=== PATIENT | male | born 1955 | race Caucasian/White ===

== ENCOUNTER → 2016-11-12 | Outpatient (CLI) | payer MEDICARE | END | disposition home or self-care (01) | LOC: GMAM 12:56 | PROVIDERS: ATTEND Family Medicine | DX: R10.84 Generalized abdominal pain (principal) ==

== ENCOUNTER → 2016-11-15 | Outpatient (CLI) | payer MEDICARE | END | disposition home or self-care (01) | LOC: GMAM 15:03 | PROVIDERS: ATTEND Family Medicine | DX: R19.7 Diarrhea, unspecified (principal) ==

== ENCOUNTER → 2016-11-19 | Outpatient (CLI) | payer MEDICARE | END | disposition home or self-care (01) | LOC: LAB.O 13:15 | PROVIDERS: ATTEND Family Medicine | DX: R19.7 Diarrhea, unspecified (principal) ==

== ENCOUNTER → 2016-11-29 | Outpatient (CLI) | payer MEDICARE | END | disposition home or self-care (01) | LOC: GMAM 10:38 | PROVIDERS: ATTEND Family Medicine | DX: R10.84 Generalized abdominal pain (principal) ==

== ENCOUNTER → 2016-12-01 | Outpatient (CLI) | payer MEDICARE ==
--- NOTE | 2016-12-01 08:31 | CT ---
EXAM DESCRIPTION: Abdomen/Pelvis w/wo Contrast CLINICAL HISTORY: UNSPECIFIED ABDOMINAL PAIN COMPARISON: Chest CT performed in June, TECHNIQUE: CT of the abdomen and Pelvis was performed with and without IV contrast. FINDINGS: There is no concerning lung base abnormality. 2 tiny nodular densities in the right lung base are stable from an older chest CT performed in June,. There is no pneumoperitoneum, ascites or adenopathy. No abdominal aortic aneurysm. No hiatal hernia or gastric wall thickening. No calcified gallstone. The liver, spleen, pancreas, adrenals and kidneys are unremarkable. No dilated small bowel loops. No bladder wall thickening. The prostate is at the upper limits of normal size, measuring just under 5 cm transverse diameter. There is minimal colonic diverticulosis without diverticulitis. Postoperative changes in the right lower quadrant may be related to prior appendectomy. No bladder wall thickening. There are degenerative changes in the lumbar spine at several levels. IMPRESSION: Minimal colonic diverticulosis, but no diverticulitis or other abnormality in the abdomen or pelvis to explain unspecified abdominal pain. Electronically signed by: Charlie Brownlee MD 12/01/2016 8:30 AM [employer]
== END | disposition home or self-care (01) ==
LOC: CT 07:49
PROVIDERS: ATTEND Family Medicine
DX: R10.84 Generalized abdominal pain (principal); N20.0 Calculus of kidney

== ENCOUNTER 2017-01-12 02:46 | Day surgery (SDC) | payer MEDICARE ==
[2017-01-12] MEDS ORDERED: LACTATED RINGERS 1,000 ML ONE (05:59)
[2017-01-12] MEDS ORDERED: fentaNYL CITRATE INJ 50 MCG/ML AMP ONE (09:25)
[2017-01-12] MEDS ORDERED: MIDAZOLAM INJ 5 MG/5 ML VIAL ONE (09:25)
[2017-01-12 09:33] VITALS: O2SAT 98
[2017-01-12] MEDS ORDERED: PROPOFOL 200 MG/20 ML VIAL IV ONE (10:00)
[2017-01-12] MEDS ORDERED: LIDOCAINE 1% 10 ML VIAL INJ ONE (10:00)
--- NOTE | 2017-01-12 10:44 | OP ---
DATE OF PROCEDURE: 01/12/17 PREOPERATIVE DIAGNOSIS: 1. Nausea. 2. Dysphagia. 3. Globus sensation. 4. Change in bowel habits. 5. Diarrhea. POSTOPERATIVE DIAGNOSIS: 1. Gastric ulcer. 2. Gastritis. 3. Colon lipomas. 4. Diverticulosis. PROCEDURE: 1. Esophagogastroduodenoscopy plus biopsy. 2. Colonoscopy plus biopsy. SURGEON: Levon Marshall MD. COMPLICATIONS: None apparent. BLOOD LOSS: None. MEDICATIONS: Monitored anesthesia care. DESCRIPTION OF PROCEDURE: Informed consent was obtained prior to sedation. The preprocedure cardiopulmonary assessment was satisfactory. The patient was placed in the left lateral decubitus position and was sedated. The tip of the Olympus esophagogastroduodenoscope was inserted in the oropharynx and carefully advanced through the cricopharyngeus into the esophageal lumen. The esophagus was examined and was unremarkable. There is no evidence of esophagitis or Hernandez's esophagus. The squamocolumnar junction was unremarkable. The stomach was examined with direct and retroflexed views. The antrum, body, fundus, cardia and incisura were closely examined. In the gastric cardia, there was some inflammation and a small, shallow gastric ulcer. This was biopsied. It does not appear neoplastic. The rest of the stomach was examined with direct and retroflexed views. The antrum, body, fundus, and incisura were examined and are pretty unremarkable. Biopsy for H. pylori was obtained in the antrum. The duodenum was examined to the second portion and does not have any changes suggestive of sprue. The scope was then removed from the patient. The patient was rotated 180 degrees. A digital rectal exam was unremarkable. The tip of the Olympus colonoscope was inserted in the rectum and guided over to the cecum. The cecum was identified by locating the ileocecal valve and appendiceal orifice. Prep was good. The mucosa of the cecum, ascending colon, hepatic flexure, transverse colon, splenic flexure, descending colon and sigmoid colon was closely examined. Direct and retroflexed views of the rectum were also obtained. The patient had a few sigmoid diverticula. The patient also has about 3 small lipomas. Otherwise, the colonoscopy was unremarkable without any obvious evidence to explain the patient's diarrhea. I did take biopsies throughout the colon looking for microscopic colitis. The procedure was then terminated. ENDOSCOPIC FINDINGS: 1. Gastric ulcer. 2. Gastritis of the cardia. 3. A few lipomas in the colon. 4. A few sigmoid diverticula. 5. Otherwise unremarkable EGD and colonoscopy. RECOMMENDATIONS: 1. I recommended daily Nexium. He can use Nexium OTC. 2. Resume his Plavix today along with his other medications. 3. Followup with me in the [facility] in January. #[id number] cc: Isauro Blankenship MD [facility]
[2017-01-12 11:02] VITALS: BP 137/82; TEMP 97.1
== END 2017-01-12 10:45 | disposition home or self-care (01) ==
LOC: AMB 02:46
PROVIDERS: ATTEND Internal Medicine Gastroenterology
DX: R19.7 Diarrhea, unspecified (principal); D12.6 Benign neoplasm of colon, unspecified; K57.30 Diverticulosis of large intestine without perforation or abscess without bleeding; K29.50 Unspecified chronic gastritis without bleeding; K29.00 Acute gastritis without bleeding; B96.81 Helicobacter pylori [H. pylori] as the cause of diseases classified elsewhere; K21.9 Gastro-esophageal reflux disease without esophagitis; F17.210 Nicotine dependence, cigarettes, uncomplicated; Z88.5 Allergy status to narcotic agent; Z95.5 Presence of coronary angioplasty implant and graft; Z79.82 Long term (current) use of aspirin; Z79.899 Other long term (current) drug therapy
CPT/HCPCS: 00810; 43239; 45380; 87077; J2250; J3010; J3490; J7120

== ENCOUNTER → 2017-02-07 | Outpatient (CLI) | payer MEDICARE | END | disposition home or self-care (01) | LOC: GMAM 16:56 | PROVIDERS: ATTEND Family Medicine | DX: Z12.5 Encounter for screening for malignant neoplasm of prostate (principal); D49.512 Neoplasm of unspecified behavior of left kidney; N39.0 Urinary tract infection, site not specified; I10 Essential (primary) hypertension; Z79.899 Other long term (current) drug therapy; Z79.82 Long term (current) use of aspirin; Z13.89 Encounter for screening for other disorder | CPT/HCPCS: 85610; 85730; 87070; 87086; G0103 ==

== ENCOUNTER → 2017-03-21 | Outpatient (CLI) | payer MEDICARE | END | disposition home or self-care (01) | LOC: GMA 17:22 | PROVIDERS: ATTEND Nurse Practitioner Acute Care | DX: R30.0 Dysuria (principal) ==

== ENCOUNTER → 2017-04-18 | Outpatient (CLI) | payer MEDICARE ==
--- NOTE | 2017-04-19 12:52 | MRI ---
Study: MRI of the Lumbar Spine. Indication: LUMBAR PAIN Technique: Multiplanar, multi sequence MRI of the lumbar spine was obtained with and without intravenous contrast. Comparison: MRI of thoracic, same day. Findings: The designated L5-S1 disc space level is visualized on axial T2 image 4. Vertebral body height maintained. Dextrocurvature lower lumbar spine. Pedicles congenitally short throughout. . Conus medullaris unremarkable. L1-L2: Mild disc space height loss and disc desiccation. 3 mm right-center disc bulge. Moderate right and mild left facet arthrosis. No stenosis. L2-L3: Mild disc space height loss and disc desiccation. 3 mm disc bulge and mild to moderate bilateral facet arthrosis. Minimal bilateral neural foraminal narrowing. L3-L4: Moderate left lateral disc space height loss and disc desiccation. Trace retrolisthesis. 4 mm left central disc bulge with mild to moderate left and mild right neural foraminal narrowing. Indentation ventral thecal sac with moderate left and mild right lateral recess narrowing. Mild spinal canal narrowing, mid sagittal thecal sac diameter 9 mm. L4-L5: Moderate to severe right lateral disc space height loss and disc desiccation noted with a 4 mm right eccentric disc osteophyte complex producing moderate right and [id number] left neural foraminal narrowing. Moderate left and mild right lateral recess narrowing. Mild spinal canal narrowing, mid sagittal thecal sac diameter 9 mm. Moderate bilateral facet arthrosis. L5-S1: Severe disc space height loss and disc desiccation posteriorly. Patchy Modic type II endplate changes. 5 mm disc osteophyte complex with posterior annular fissuring. Moderate to severe bilateral neural foraminal narrowing. Indentation ventral thecal sac with mild spinal canal narrowing, mid sagittal thecal sac diameter 9 mm. Moderate right and mild left lateral recess narrowing. No pathologic enhancement or abnormal enhancing relation tissue. 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 Findings are most pronounced at L5-S1 as detailed above. Electronically signed by: Marshall Beckham MD 04/19/2017 12:50 PM CDT
--- NOTE | 2017-04-19 12:58 | MRI ---
Study: MRI of the Thoracic Spine. Indication: Thoracic pain. Technique: Multiplanar, multi sequence MRI of the thoracic spine was obtained without intravenous contrast. Comparison: MRI lumbar, same day Findings: Chronic appearing Schmorl's node/superior plate deformities at T3 noted with 30% anterior/central height loss. No acute thoracic vertebral fracture identified. Accentuation of upper thoracic kyphosis noted. No marrow infiltrating lesion. Spinal cord normal in caliber and signal. Mild to moderate loss of disc space height height and hydration noted throughout the thoracic spine. T7-T8: 2.5 mm left eccentric disc bulge indenting the ventral thecal sac without stenosis. T8-T9: 2.5 mm left central disc bulge indenting the ventral thecal sac without stenosis. T9-T10: 3 mm disc bulge indenting the thecal sac with mild spinal canal narrowing. Facet arthrosis at this level noted as well with mild bilateral neural foraminal narrowing. T10-T11: 2.5 mm right eccentric disc bulge without spinal canal narrowing. Bilateral facet arthrosis noted with mild bilateral neural foraminal narrowing. No stenosis at the remaining thoracic disc space levels. Impression: Aork-fl-[id number] disc disease of the mid to lower thoracic disc space levels, most pronounced at T9-T10 as above. Electronically signed by: Marshall Beckham MD 04/19/2017 12:57 PM CDT
== END ==
LOC: MRI 11:04
PROVIDERS: ATTEND Neurological Surgery
DX: M54.5 Low back pain (principal); M54.6 Pain in thoracic spine

== ENCOUNTER → 2017-05-10 | Outpatient (CLI) | payer MEDICARE ==
--- NOTE | 2017-05-10 12:54 | CT ---
EXAM DESCRIPTION: CT chest with contrast CLINICAL HISTORY: Pulmonary nodules. COPD/emphysema COMPARISON: CT 12/01/2016 TECHNIQUE: Contrast-enhanced spiral CT with coronal and sagittal reformatted images. This exam was performed according to our departmental dose-optimization program, which includes automated exposure control, adjustment of the mA and/or kV according to patient size and/or use of iterative reconstruction technique. FINDINGS: The 2 tiny nodular densities in the right lower lung zone are again identified, stable 1 adjacent to the apex hemidiaphragm and the other in the lateral segment right middle lobe. These are benign nodules consistent with granulomas stable back to 2012 Emphysema thinning the upper lobes. 2 mm nodule posterior right upper lobe series 2 image 14. Faint groundglass patchy opacities in the bilateral lungs could be interstitial fibrosis versus acute infiltrate/pneumonitis. Unlikely to represent edema Visualized thyroid gland is normal. Small probably reactive hilar or mediastinal lymph nodes. Heart size normal. Coronary artery calcifications. Atherosclerotic aorta. Images through the upper abdomen show no mass or adenopathy Multilevel degenerative changes in the spine. No acute bony abnormality. No lytic or blastic bony lesion. Previous cervical spine fusion IMPRESSION: Emphysema. No suspicion of malignancy Faint bilateral multifocal patchy groundglass opacities. See above discussion Electronically signed by: Jon Johnson MD 05/10/2017 12:53 PM CDT
== END | disposition home or self-care (01) ==
LOC: CT 09:50
PROVIDERS: ATTEND Family Medicine
DX: R91.1 Solitary pulmonary nodule (principal); J44.1 Chronic obstructive pulmonary disease with (acute) exacerbation; I25.10 Atherosclerotic heart disease of native coronary artery without angina pectoris

== ENCOUNTER → 2017-10-07 | Outpatient (CLI) | payer MEDICARE | END | disposition home or self-care (01) | LOC: GMAM 14:21 | PROVIDERS: ATTEND Family Medicine | DX: R53.83 Other fatigue (principal); R53.81 Other malaise; E55.9 Vitamin D deficiency, unspecified ==

== ENCOUNTER → 2017-10-19 | Outpatient (CLI) | payer MEDICARE | LOC: GMAJS 10:51 | PROVIDERS: ATTEND Physician Assistant | DX: R30.0 Dysuria (principal) ==

== ENCOUNTER → 2017-10-27 | Outpatient (CLI) | payer MEDICARE | LOC: GMAM 14:41 | PROVIDERS: ATTEND Family Medicine | DX: R10.84 Generalized abdominal pain (principal) ==

== ENCOUNTER → 2018-03-07 | Outpatient (CLI) | payer MEDICARE | LOC: GMAM 14:40 | PROVIDERS: ATTEND Family Medicine | DX: I10 Essential (primary) hypertension (principal); R30.0 Dysuria; R53.83 Other fatigue; N40.0 Benign prostatic hyperplasia without lower urinary tract symptoms; E55.9 Vitamin D deficiency, unspecified ==

== ENCOUNTER → 2018-06-08 | Outpatient (CLI) | payer MEDICARE ==
--- NOTE | 2018-06-09 09:12 | MRI ---
EXAM DESCRIPTION: Lumbar Spine w/o Contrast : Magnetic Resonance Imaging. CLINICAL HISTORY: LUMBAR RADICULOPATHY COMPARISON: MRI scan lumbar spine 04/18/2017. TECHNIQUE: Multiplanar, multiple standard sequences, non contrast MRI, lumbar spine. FINDINGS: L5-S1: Disc space is visible on T2 weighted axial sequence 501, image 3. Patient also has a rudimentary S1-2 disc. Disc space decreased with disc desiccation. Posterior 5 mm disc bulge with associated spur impressing on the thecal sac and extending inferior to the right encroaching on the subarticular recess and the descending right S1 nerve. Posterior elements are unremarkable. Moderate bilateral foraminal narrowing. L4-5: Disc desiccation and minimal disc space loss. Anterior bulging. Posterior disc osteophyte bulge to the left of midline 5 mm abutting the thecal sac and the left descending L5 nerve with narrowing of the subarticular recess. Left paracentral borderline canal stenosis. Mild narrowing left foramen moderate narrowing right foramen. L3-4: Disc desiccation. Anterior endplate spurs. Right side Modic type I endplate reactive changes, disc spur complex encroaching on the left foramen with mild narrowing. Large right paracentral disc protrusion and inferior extrusion 10 mm with right subarticular recess stenosis and impingement of the descending right L4 nerve. New since the prior study. Right paracentral mild canal stenosis. Mild narrowing of the right foramen. L2-3: Minimal disc space loss and minimal disc desiccation. Tiny posterior bulge. Minimal flavum ligament hypertrophy. Minimal facet arthrosis. Mild canal narrowing. Mild bilateral foraminal narrowing. L1-2: Disc desiccation posterior disc space loss. Tiny posterior bulge. Flavum ligament hypertrophy and minimal facet arthrosis. Mild canal narrowing. Bilateral foramina are patent. T12-L1: Disc space preserved with anterior bulging. Tiny posterior bulge. Hypertrophy of the bilateral facet joints. Mild canal narrowing. Conus terminates just above the disc space. L1-L4 dextroscoliosis. Paravertebral soft tissues minimal paraspinal muscle atrophy.. Otherwise normal marrow signal in the remaining vertebral bodies and the posterior elements. Vertebral bodies are not compressed at any level. IMPRESSION: 1. Large right paracentral L3-4 disc herniation with inferior extrusion impinging the thecal sac and the descending right L4 nerve with right subarticular recess stenosis. Mild spondylosis on the left with disc spur complex narrowing the left foramen. 2. Posterior paracentral left L4-5 disc osteophyte bulge abutting the thecal sac and the descending left L5 nerve in the left subarticular recess. No change since the prior study. 3. Posterior L5-S1 disc bulge with osteophyte seen into the right and encroaching on the right subarticular recess and the descending right S1 nerve. Stable since the prior study. Electronically signed by: Galo Ozuna MD 06/09/2018 9:10 AM CDT
== END ==
LOC: MRI 10:18
PROVIDERS: ATTEND Family Medicine
DX: M51.16 Intervertebral disc disorders with radiculopathy, lumbar region (principal); M51.17 Intervertebral disc disorders with radiculopathy, lumbosacral region

== ENCOUNTER → 2018-06-14 | Outpatient (CLI) | payer MEDICARE | LOC: GMAM 17:49 | PROVIDERS: ATTEND Family Medicine | DX: D35.2 Benign neoplasm of pituitary gland (principal); E55.9 Vitamin D deficiency, unspecified; Z12.5 Encounter for screening for malignant neoplasm of prostate | CPT/HCPCS: 82306; 84439; 84443; G0103 ==

== ENCOUNTER → 2018-10-17 | Outpatient (CLI) | payer MEDICARE | LOC: GMAJS 10:31 | PROVIDERS: ATTEND Physician Assistant | DX: R10.84 Generalized abdominal pain (principal) ==

== ENCOUNTER → 2018-10-30 | Outpatient (CLI) | payer MEDICARE | LOC: GMAM 16:47 | PROVIDERS: ATTEND Family Medicine | DX: R06.02 Shortness of breath (principal); R10.84 Generalized abdominal pain; Z12.5 Encounter for screening for malignant neoplasm of prostate | CPT/HCPCS: 83880; G0103 ==

== ENCOUNTER → 2018-10-31 | Outpatient (CLI) | payer MEDICARE ==
--- NOTE | 2018-10-31 15:15 | MRI ---
EXAM DESCRIPTION: Brain w/o Contrast: MRI. CLINICAL HISTORY: DIZZINESS COMPARISON: MRI scan of the brain without evidence of IV contrast 09/13/2016. CT scan of the abdomen and pelvis today. TECHNIQUE: Multiplanar, high-field MRI unit, multiple diffusion sequences, multiple conventional sequences without contrast. FINDINGS: Small bilateral indistinct foci of hyperintense FLAIR and T2-weighted signal in the periventricular white matter. Focal meeks-white matter junction lesion in the left frontal lobe at the level of the upper ventricles on axial flair series 601, image 17. The lesion was less distinct on the prior study. . No hemorrhage, no cerebral edema, no mass-effect. No diffusion restriction. Normal signal in the bilateral basal ganglia. Small focal hyperintense FLAIR and T2 signal in the brainstem. Similar appearance on the prior study. Normal signal in the bilateral Cerebellar hemispheres. No hemorrhage, no cerebral edema, no mass-effect. No diffusion restriction in the brainstem or posterior fossa. Concordance of the diffusion and non-diffusion sequences with no diffusion restriction. Cortical sulci, ventricles, and other CSF spaces, and the subdural spaces are normally configured for the patient's age.. No effacement or displacement. No midline shift. No extra-axial hemorrhage. Normal flow signal void in the major vessels of the [place], and the venous sinuses. IACs are symmetric bilaterally. Minimal fluid density in the inferior right mastoid air cells. No mass effect in the bilateral cerebellopontine angles. Pituitary gland occupies most of the sella. Base of the cerebellar tonsils is above the foramen magnum. No significant abnormalities in the. The bony calvarium is intact. IMPRESSION: 1. White matter changes in the bilateral periventricular centrum semiovale which are stable since the prior study in August 2016. Focal lesion in the left frontal subcortical white matter is more distinct compared to the prior study which may be due to technique versus actual change in size of the lesion. No hemorrhage, no edema, no diffusion restriction. 2. White matter changes in the brainstem are stable with no hemorrhage, edema, or diffusion restriction. 3. 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 Electronically signed by: Galo Ozuna MD 10/31/2018 3:12 PM [facility]
--- NOTE | 2018-10-31 15:52 | CT ---
EXAM DESCRIPTION: Abdomen/Pelvis w/wo Contrast: Computed Tomography. CLINICAL HISTORY: GENERALIZED ABDOMINAL PAIN. Lower abdominal tenderness. COMPARISON: CT scan abdomen and pelvis 12/01/2016. Chest CT scan 05/10/2017. TECHNIQUE: Spiral-axial scans at 5.0 mm intervals through the abdomen and pelvis before and after standard dose nonionic IV contrast. Coronal and sagittal 2.0 mm reconstructions. 5 mm Delayed helical-axial scans, liver through the pubic symphysis. No adverse reactions. Total Exam DLP 1974.01 mGy - cm. This exam was performed according to our departmental CT dose-optimization program which includes automated exposure control, adjustment of the mA and/or kV according to patient size and/or use of iterative reconstruction technique; to reduce radiation dose to as low as reasonably achievable (ALARA). FINDINGS: Lung bases and pleura: Patchy bibasilar Mosaic density in the included lungs. Coronary artery calcification. Liver, Stomach, Spleen, Adrenal Glands: Unremarkable. Pancreas, Gallbladder, Ducts: Gallbladder visualized. Stone or sludge inferior dependent segment. Duct and pancreas unremarkable. Slight distention of the duodenum by gas. Kidneys and Ureters: Small arterial atherosclerotic calcification on the right. No bilateral radiodense stones, hydronephrosis, or hydroureter. Mesentery: Negative. Aorta: Moderate atherosclerotic calcification and intimal wall thickening with narrowing of the distal lumen. Small Bowel: Negative. Terminal Ileum/Cecum: Unremarkable. Surgical sutures and clips inferior cecum with appendix not seen. No fatty stranding. Colon: Question of minimal mucosal edema of the proximal sigmoid colon. No obstruction. No fatty stranding. Remainder of the colon is unremarkable. Pelvic Organs: Prostate gland impresses on the base of the urinary bladder. Central calcification. Dimensions are 4.9 mL x 3.8 cm. Bladder wall thickening. No free fluid. Spine and Bony Pelvis: Disc space loss and gas formation in the disc spaces L3-4, L4-5, L5-S1. Posterior broad-based disc osteophyte bulge L5-S1 and significant canal and foraminal narrowing. Lower lumbar dextroscoliosis. Hypertrophic changes in the bilateral acetabular facets laterally. Abdominal Wall/Back Soft Tissues: Fatty right inguinal hernia not containing bowel. Right hydrocele. IMPRESSION: 1. Stone or sludge in the inferior gallbladder. Common bile duct and pancreas negative. No fatty stranding. Consider follow-up ultrasound right upper quadrant abdomen. 2. Prostate gland impressing on the base of the urinary bladder. Bladder wall thickening may be due to partial bladder outlet obstruction. 3. Fatty right inguinal hernia not containing bowel. 4. Thickening of the proximal sigmoid bowel wall with possible edema and lack of haustral markings. No fatty stranding. Could represent a nonspecific or recurrent colitis. Similar appearance on the prior abdominal pelvic scan 5. Chronic airspace density in the bilateral lower lobes consistent with the appearance of the lungs on chest CT scan in April 2017. Electronically signed by: Galo Ozuna MD 10/31/2018 3:49 PM [facility]
== END ==
LOC: CT 08:21
PROVIDERS: ATTEND Family Medicine
DX: R42 Dizziness and giddiness (principal); R10.84 Generalized abdominal pain; K40.90 Unilateral inguinal hernia, without obstruction or gangrene, not specified as recurrent; H70.11 Chronic mastoiditis, right ear

== ENCOUNTER 2018-11-01 18:46 | Observation (INO) | payer MEDICARE ==
--- NOTE | 2018-11-01 19:09 | ED.PDOC ---
History of Present Illness - General Chief Complaint: GI Problem Stated Complaint: GI symptoms, weakness Time Seen by Provider: 11/01/18 19:08 Information Source: patient Exam Limitations: no limitations - History of Present Illness Initial Comments: Lenin Genao 63 y/o male state that he had been having daily bearable constant dull upper abdominal pain for the last 2 months,stated no energy,feeling bloated,nauseated ,no vomiting ,no weight loss,loss of appetite.Had seen his primary Md CT abd/pelvis-sludge or stone,colitis was also placed on antibiotics for prostatitis-Cipro.He was advised to be admitted to hospital. Abdominal Pain Onset Location: other - upper abdomen Pain Radiation: no radiation Quality: moderate, dull, steady Timing/Duration: other - 60 days Improving Factors: nothing Worsening Factors: nothing Associated Symptoms: other - see hpi Review of Systems - Review of Systems Constitutional: States: see HPI EENTM: States: no symptoms reported Respiratory: States: no symptoms reported Cardiology: States: no symptoms reported Gastrointestinal/Abdominal: States: see HPI Genitourinary: States: see HPI Musculoskeletal: States: no symptoms reported Skin: States: no symptoms reported Neurological: States: no symptoms reported All other Systems: Reviewed and Negative, No Change from Baseline Past Medical History (General) - Patient Medical History Hx Stroke: Yes - TIA Hx of COPD: Yes Hx Cardiac Disorders: Yes - arrhythmia Hx Congestive Heart Failure: No Hx Diabetes: No Hx MRSA: No Surgical History: appendectomy, coronary bypass surgery, other - c-spine surgery - Vaccination History Hx Influenza Vaccination: No Hx Pneumococcal Vaccination: No - Social History Hx Tobacco Use: Yes Hx Alcohol Use: Yes Hx Physical Abuse: No Hx Emotional Abuse: No Family Medical History - Family History Father Living Status: Hx Family Congestive Heart Failure: Yes - parents Hx Family Hypertension: Yes - parents Physical Exam - Physical Exam General Appearance: Alert, Comfortable, No apparent distress Eyes, Ears, Nose, Throat Exam: normal ENT inspection, pharynx normal Neck: non-tender, full range of motion, supple Respiratory: chest non-tender, lungs clear, normal breath sounds, no respiratory distress Cardiovascular/Chest: normal peripheral pulses, regular rate, rhythm, no murmur Peripheral Pulses: No deficit Gastrointestinal/Abdominal: normal bowel sounds, non tender, soft, no organomegaly Extremity: no pedal edema, no calf tenderness Neurologic: alert, oriented x 3 Skin Exam: normal color, warm/dry Progress - Progress Progress: 11/01/18 20:26 Vital Signs - 8 hr 11/01/18 11/01/18 18:50 18:56 Temperature 97.5 F L Pulse Rate [ 83 81 Left Radial] Respiratory 22 20 Rate Blood Pressure 127/89 [Left Arm] O2 Sat by Pulse 94 L Oximetry - Results/Orders Results/Orders: 11/01/18 19:10 IV Care:Saline Lock per Protoc QSHIFT 11/01/18 19:18 LACTIC ACID Stat Laboratory Results - last 24 hr 11/01/18 11/01/18 19:18 19:18 WBC 7.2 RBC 4.91 Hgb 14.9 Hct 44.4 MCV 90.4 MCH 30.3 MCHC 33.6 RDW 14.9 H Plt Count 188 MPV 9.0 Absolute Neuts (auto) 5.20 Absolute Lymphs (auto) 1.20 Absolute Monos (auto) 0.50 Absolute Eos (auto) 0.20 Absolute Basos (auto) 0.10 Neutrophils % 72.0 Lymphocytes % 17.0 L Monocytes % 6.5 Eosinophils % 3.2 Basophils % 1.3 PT 9.4 INR 0.94 PTT (SP) 22.7 Sodium 129 L Potassium 4.1 Chloride 95 L Carbon Dioxide 25 Anion Gap 13.1 BUN 15 Creatinine 0.78 BUN/Creatinine Ratio 19.2 Random Glucose 144 H Serum Osmolality 262.3 L Calcium 9.0 Magnesium 1.8 Total Bilirubin 0.5 Direct Bilirubin < 0.1 Indirect Bilirubin 0.4 AST 19 ALT 21 Alkaline Phosphatase 63 Creatine Kinase 45 CK-MB (CK-2) 2.0 CK-MB (CK-2) % Not Reportable Troponin I < 0.02 Serum Total Protein 7.3 Albumin 4.4 Lipase 31 Urine Color Yellow Urine Appearance Clear Urine pH 6.5 Ur Specific [place] 1.025 Urine Protein Negative Urine Glucose (UA) Negative Urine Ketones Negative Urine Blood Negative Urine Nitrite Negative Urine Bilirubin Negative Urine Urobilinogen 0.2 Ur Leukocyte Esterase Negative Urine RBC 0 Urine WBC 0-1 Ur Epithelial Cells 0 Urine Bacteria 0 - EKG/XRAY/CT XRAY: chest - no acute abnormalities CT Ordered: Yes - outpatient Departure - Departure Clinical Impression: Abdominal pain Qualifiers: Abdominal location: upper abdomen, unspecified Qualified Code(s): R10.10 - Upper abdominal pain, unspecified Time of Disposition: 20:57 Disposition: Admit Patient Condition: Fair Departure Forms: Patient Portal Self Enrollment Referrals: Jon Blankenship MD [Primary Care Provider] - 1-2 Weeks Home Medications: Ambulatory Orders Amlodipine Besylate 5 mg PO DAILY 01/10/17 Ascorbic Acid [Vitamin C] 1,000 mg PO DAILY 01/10/17 Aspirin [Aspirin Adult Low Dose] 81 mg PO DAILY 01/10/17 Benazepril HCl [Lotensin] 10 mg PO DAILY 01/10/17 Carvedilol [Coreg] 6.25 mg PO BID 01/10/17 Clopidogrel Bisulfate [Plavix] 75 mg PO QD 01/10/17 Coenzyme Q10 (Ubidecarenone) [Co Q-10] 200 mg PO DAILY 01/10/17 Meloxicam [Mobic] 7.5 mg PO BID 01/10/17 Nitroglycerin [Nitrostat] 0.4 mg SL PRN PRN 01/10/17 Probiotic Product [Probiotic] 1 tab PO DAILY 01/10/17 Tamsulosin [Flomax] 0.4 mg PO QD 01/10/17 Trazodone HCl 75 mg PO DAILY 01/10/17 Vortioxetine HBr [Brintellix] 20 mg PO DAILY 01/10/17 Decision To Admit - Decistion To Admit Decision to Admit Reason: Admit from ER Decision to Admit Date: 11/01/18 - D/W Yves Pozo-ANP/Hospitalist Decision to Admit Time: 20:58
[2018-11-01] MEDS ORDERED: LACTATED RINGERS 1,000 ML IVS ONE (19:10)
--- NOTE | 2018-11-01 19:39 | RAD ---
EXAM DESCRIPTION: Chest,1 View CLINICAL HISTORY: 63 years Male pain COMPARISON: 05/10/2017 CT FINDINGS: The cardiomediastinal silhouette appears unremarkable. No consolidating infiltrates or pleural effusions. No pneumothorax. Median sternotomy wires are present. IMPRESSION: No acute abnormality is identified. Electronically signed by: Lucrecia Muller MD 11/01/2018 7:37 PM [facility] [employer]
--- NOTE | 2018-11-01 21:23 | HP ---
SUPERVISING PHYSICIAN: Jon Blankenship MD CHIEF COMPLAINT: Right upper quadrant pain, nausea. HISTORY OF PRESENT ILLNESS: Mr. Genao is a 63-year-old, male patient who is very histrionic. He notes his symptoms started back in June when he had a strep infection and he just started not feeling well. He saw his blood tester who found no acute findings to explain his symptoms. His discomfort and not feeling well progressed and he presented to the walk-in clinic last week and was seen by LAVERNE Zhao, and diagnosed with kidney stones. At that time, he was given a shot of Toradol. This past Tuesday, he saw Dr. Blankenship because he was feeling worse. He noted some tenderness in the right upper quadrant and midabdomen associated with some nausea and dizziness. Dr. Blankenship did a CT of the abdomen with contrast with significant findings including an enlarged prostate that was pressing on the base of the urinary bladder with bladder wall thickening which could be due to partial bladder outlet obstruction. There was also note of stone or sludge in the inferior gallbladder with common bile duct and pancreas being negative with no fat stranding. The patient then was called today after the findings of the CT were reported and Dr. Blankenship requested the patient go to the Emergency Room for further evaluation for concerns for possible cholecystitis. He was also started on ciprofloxacin this week for the prostatitis that was diagnosed on CT scan. Prior to coming to the Emergency Room today, Dr. Blankenship had completed [employer] testing on the patient and there were no positive results found. His workup in the Emergency Room included laboratory studies that showed a normal white count of 7,200. Chemistry showed just a mildly low sodium of 129. Otherwise, electrolytes were within normal limits as well as his renal function. Liver functions were within normal limits as well as lipase. Lactic acid was normal at 1.8. Urinalysis was without any sign of infection. A chest x-ray was also done and per radiologic interpretation showed no acute abnormalities. Review of the past week showed also that he had brain MRI with no significant acute findings. 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 In the Emergency Room, his vital signs showed he was afebrile, blood pressure 137/76, saturation 96% on room air. On physical examination, the patient was noted to be tender across the midabdomen, no guarding or rebound, as well as some tenderness noted to the right upper quadrant. Given the past symptoms associated with the pain and current findings on CT, Dr. Blankenship requested the patient be placed in Observation overnight and given some IV fluids and made NPO for ultrasound in the morning with a consultation with Dr. Tena. The patient was placed in Observation in stable condition. PAST MEDICAL HISTORY: 1. Cardiovascular disease with multiple cardiac stents and coronary artery bypass graft times 2. PAST SURGICAL HISTORY: 1. Coronary artery bypass graft times 2. 2. Appendectomy in 2017. 3. Coronary artery stenting times 13 stents. 4. Hemorrhoidectomy. 5. Vasectomy. 6. Neck fusion secondary to fractured cervical spine after a fall. CURRENT MEDICATIONS: 1. Flomax 0.4 mg daily. 2. Tadalafil 5 mg daily. 3. Probiotic 1 tablet daily. 4. Nitroglycerin 0.4 mg sublingual p.r.n. 5. Mobic 7.5 mg b.i.d. 6. Desvenlafaxine extended release 50 mg daily. 6. Cyclobenzaprine 10 mg daily. 7. Coenzyme Q10 200 mg daily. 8. Plavix 75 mg daily. 9. Cipro 500 mg b.i.d. 10. Vitamin D 3000 units daily. 11. Coreg 25 mg b.i.d. 12. Aspirin 81 mg. ALLERGIES: MORPHINE, RESULTING IN EXTENSIVE ITCHING. FAMILY HISTORY: Mother is still alive at 85 and has advanced heart disease. Father at age 76 of heart disease with congestive heart failure and kidney problems. He had one sister at age 30 with diabetes complications and heart disease. He has one brother at age 64 due to heart disease and throat cancer. He has one sister that is 63 and currently alive with cardiovascular problems. He has three daughters that are all healthy. 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 He does have an extensive history of smoking tobacco for well over 55 years or more up to 2 packs a day and currently smokes 2 packs a day. He drinks alcohol on rare occasions. He does not use any illicit drugs. He has been 44 years and lives in [place], [place]. REVIEW OF SYSTEMS: CONSTITUTIONAL: As noted in history of present illness, genera malaise, but no reported weight loss, fevers or chills. HEENT: Negative for sore throats, earaches, nasal congestion, visual disturbances. RESPIRATORY: Negative for shortness of breath, wheezing or cough. CARDIOVASCULAR: Negative for chest pain, peripheral edema or syncopal episodes. GASTROINTESTINAL: As noted in history of present illness, midabdominal pain with right upper quadrant pain. GENITOURINARY: As noted in history of present illness, difficult in urinating, but denies hematuria or polyuria. MUSCULOSKELETAL: Negative for arthralgias, joint swelling. INTEGUMENTARY: Negative for any rashes or lesions. NEUROLOGIC: Negative for any syncopal episode, focal deficits, ataxia, seizure activity. PHYSICAL EXAMINATION: VITAL SIGNS: Temperature 97.2. Pulse 82. Blood pressure 149/82. Respirations 18. Saturation 96% on room air. Admission weight 78 kg. GENERAL: On admission to the Medical/Surgical Floor, the patient appears to be very comfortable without any distress, well-nourished, well-hydrated. HEENT: Tympanic membranes clear bilaterally. Oropharynx is pink, moist without any lesions. NECK: Supple, nontender with limited range of motion due to fusion. No jugular venous distention noted. RESPIRATORY: Lungs clear to auscultation bilaterally without any rhonchi, wheezes, or rales. CARDIOVASCULAR: Regular rate and rhythm without any appreciable murmurs, gallops, or rubs. ABDOMEN: Soft with some tenderness on palpation across the midabdomen from left to right and right upper quadrant. No peritoneal signs. No rebound tenderness, no guarding. GENITOURINARY: Deferred. BACK: No CVA tenderness. No vertebral tenderness. EXTREMITIES: There is no cyanosis, clubbing or edema. NEUROLOGIC: The patient is alert and oriented times three. Cranial nerves II- XII are grossly intact. Facial features are symmetrical. Extraocular movements are within normal limits. LABORATORY: White count 7,200, hemoglobin 14.9, hematocrit 44.4, platelet count 180,000. Differential is without a left shift. Coagulation studies were normal. Chemistry showed low sodium 129, potassium 4.1, BUN 15, creatinine 0.78, serum osmolality 262, lactic acid 1.8, magnesium normal at 1.8, calcium 9.0. Liver functions all within normal limits. Troponin less than 0.02. Lipase 31. Urinalysis within normal limits with no signs of infection. RADIOLOGY: As noted above, he had a chest x-ray on admission and there were no acute abnormalities noted. As noted above, on 10/31/18, he had MRI of the head and CT of the abdomen and pelvis with contrast. There were no acute findings on the MRI. CT of the abdomen and pelvis showed stone or sludge in the inferior gallbladder. Common bile duct and pancreas were negative. No fat stranding. The prostate gland was pressing on the base of the urinary bladder with wall thickening which could be a partial bladder outlet obstruction. Fatty right inguinal hernia not containing bowel. Thickening of the proximal sigmoid bowel wall with possible edema and lack of haustral markings. No fatty stranding. Could represent a nonspecific or recurrent colitis. Similar appearance on the prior abdominal pelvic scan. Please see that full report for details. ASSESSMENT: 1. Abdominal pain of uncertain etiology with findings of cholelithiasis with possible cholecystitis. 2. Prostatic enlargement, possibly resulting in some partial bladder outlet obstruction. 3. Acute hyposmotic hyponatremia, uncertain etiology, possibly medication driven with normal renal function. 4. Extensive cardiovascular disease with previous coronary artery bypass graft, multiple stents in a current smoker. 5. Chronic tobacco and nicotine abuse. PLAN: The patient will be placed in Observation tonight. We will make him NPO. I will start him on some IV fluids with normal saline including potassium at 150 an hour. He will be given antiemetics and Dilaudid for pain management as he has adverse reaction to morphine. We will give him a dose of Levaquin as he is on Cipro for the acute prostatitis. We will review and resume his medications as appropriate. We will anticipate his length of stay to be at least one to two days, possibly discharging tomorrow. We will get an ultrasound of the gallbladder in the morning and request a consultation with Dr. Tena regarding those findings and current concerns for cholecystitis and the abdominal pain. Until the patient can transition to outpatient management, we will continue to monitor and treat as needed. #[id number] [facility]
[2018-11-01] MEDS ORDERED: SODIUM CHLORIDE 0.9% (FLUSH) 10 ML SYG IV PRN (21:41)
[2018-11-01] MEDS ORDERED: KCL 20MEQ/0.45% NS 1,000 ML IVS PRN (21:48)
[2018-11-01] MEDS ORDERED: IV SET AND CAP CHANGE INJ INJ SCH (22:00)
[2018-11-01] MEDS: KCL 20 MEQ/NS 1,000 ML IVS PRN (22:11)
[2018-11-01] MEDS: NICOTINE PATCH 14 MG TD SCH (22:40)
[2018-11-01] MEDS: levoFLOXacin 750MG IV 750 MG in PREMIX BAG 1 BAG IVPB SCH (22:41)
[2018-11-01] MEDS: HYDROmorphone HCL INJ 2 MG/ML VIAL IV PRN (22:49)
[2018-11-02] MEDS: HYDROmorphone HCL INJ 2 MG/ML VIAL IV PRN ×4 (02:56→16:45)
[2018-11-02] MEDS: KCL 20 MEQ/NS 1,000 ML IVS PRN ×2 (04:31→10:58)
[2018-11-02] MEDS: ONDANSETRON INJ 4 MG/2 ML VIAL IV PRN ×5 (04:38→23:08)
[2018-11-02] MEDS: NICOTINE PATCH 14 MG TD SCH (09:20)
--- NOTE | 2018-11-02 09:37 | US ---
EXAM DESCRIPTION: Gall Bladder: ULTRASOUND. CLINICAL HISTORY: RUQ pain. COMPARISON: CT scan of the abdomen and pelvis 10/31/2018. TECHNIQUE: Transabdominal scanning: Donohue-scale and Doppler modes. FINDINGS: Gallbladder: normal size, shape, echogenicity; no intraluminal stones or sludge. No fluid around the gallbladder. No wall thickening. 1.3 mm. Non-tender with transducer pressure. Common bile duct: caliber 2.6 mm within normal limits. Liver: normal echogenicity; contour liver capsule smooth where seen. No fluid around the liver. Intrahepatic biliary ducts normal caliber. Doppler hepatopedal flow portal vein.. Long axis right lobe 15.7 cm. Pancreas: Limited visualization. Normal echogenicity. Duct not seen. Aorta: Proximal aorta not well seen. Normal caliber of the mid and distal segments. Right kidney: Long axis 11.3 cm. Normal cortical thickness and echogenicity. No hydronephrosis or perirenal fluid or abnormal vascularity. IMPRESSION: 1. Normal ultrasound of the gallbladder. Remainder of the right upper quadrant organs are unremarkable. Normal caliber of ducts. Normal caliber and flow in the portal vein. 2. If gallbladder function is questionable or right upper quadrant abdominal pain persists, consider radionuclide hepatobiliary imaging with gallbladder ejection fraction determination. Electronically signed by: Galo Ozuna MD 11/02/2018 9:34 AM PEDIATRIC CLINICAL NURSE SPECIALIST
[2018-11-02] MEDS ORDERED: MAGNESIUM HYDROXIDE 30 ML UD PO ONE (12:50)
--- NOTE | 2018-11-02 13:13 | CONS ---
DATE OF CONSULTATION: 11/02/18 HISTORY OF PRESENT ILLNESS: The patient is a 63-year-old male who was admitted basically for abdominal pain that is basically chronic in nature since last June. He also complains of belching, being tired and not having as good of an appetite, but he has not lost weight. He denies change in his bowel habits although he states he has had two days of black stools. There was no blood found in his stool. I have been asked to help to evaluate his abdominal discomfort and symptoms. PAST SURGICAL HISTORY: 1. Coronary artery bypass grafting. 2. Appendectomy. 3. Multiple coronary stents. 4. Hemorrhoidectomy. 5. Vasectomy. 6. Neck fusion for fractured cervical spine. CURRENT MEDICATIONS: 1. Flomax. 2. Tadalafil. 3. Probiotic. 4. Nitroglycerin. 5. Mobic. 6. Cyclobenzaprine. 7. Coenzyme Q10. 8. Plavix. 9. Cipro. 10. Coreg. 11. Aspirin. 12. Vitamin D. 13. Desvenlafaxine 50 mg. FAMILY HISTORY: Positive for heart disease, renal disease, diabetes and cancer associated with smoking. Children are all healthy. SOCIAL HISTORY: He is retired and has greater than 80 pack year history of tobacco abuse. He drinks rarely. REVIEW OF SYSTEMS: As noted, he has a feeling of ill health. No chest pain, shortness of breath. He denies problems with voiding. He does complain of belching, anorexia, but no change in bowel habits. Within the last 3 years, he has undergone both colonoscopy and upper GI endoscopy and was treated for peptic ulcer disease. PHYSICAL EXAMINATION: GENERAL: The patient is awake, alert, cooperative, in mild distress. VITAL SIGNS: The patient is currently afebrile, normotensive. HEENT: Sclerae nonicteric. Mucous membranes moist. NECK: Without adenopathy. BACK: Without CVA tenderness. CHEST: Equal breath sounds bilaterally. ABDOMEN: Soft, mildly distended with mild right sided tenderness. No Mcintosh's sign. RECTAL: Deferred. He does have a small right inguinal hernia which is asymptomatic. EXTREMITIES: Without cyanosis, clubbing or edema. LABORATORY: Normal white count with normal differential. Liver function tests were normal times 2. Troponin, lipase within normal limits. Urinalysis clear. CT that he had pre-admission reveals a large amount of stool, enlarged prostate, hiatal hernia, but no inflammatory processes, no free air or free fluid. Ultrasound of the gallbladder that he had this morning revealed no stones, no wall thickening, no pericholecystic fluid and normal ducts and a negative transducer Mcintosh's sign. ASSESSMENT: 1. Abdominal pain, likely associated with obstipation. 2. Hiatal hernia that may be associated with his belching. 3. Electrolyte imbalance, improving. 4. Coronary artery disease status post treatment. 5. Tobacco abuse. 6. Prostatic hypertrophy of uncertain etiology. PLAN: Continue the antibiotics for prostatitis. We will give MiraLAX, Milk of Magnesia and start a diet, which if he tolerates, he can be discharged likely on a proton pump inhibitor and consideration for an outpatient HIDA scan, which I will see after I see the patient as an outpatient. #[id number] [facility]
[2018-11-02] MEDS: POLYETHYLENE GLYCOL 3350 17 GM PCKT PO SCH (13:22)
[2018-11-02] MEDS ORDERED: PANTOPRAZOLE SODIUM IV 40 MG VIAL IV ONE (15:12)
[2018-11-02] MEDS ORDERED: metroNIDAZOLE IV PREMIX 500MG 100 ML IVPB ONE ×2 (15:52→23:08)
[2018-11-02] MEDS: ENOXAPARIN SODIUM 40 MG/0.4 ML SYG SUBCU SCH (15:56)
[2018-11-02] MEDS: metroNIDAZOLE IV PREMIX 500MG 500 MG in PREMIX BAG 1 BAG IVPB SCH ×2 (15:56→23:12)
[2018-11-02] MEDS: ASPIRIN (ENTERIC COATED) 81 MG TAB PO SCH (15:56)
[2018-11-02] MEDS: NON-FORMULARY MEDICATION 1 EA MIS (Tadalafil [Tadalafil] 5 MG) PO SCH (16:40)
[2018-11-02] MEDS: TAMSULOSIN 0.4 MG CAP PO SCH (16:40)
[2018-11-02] MEDS: CLOPIDOGREL 75 MG TAB PO SCH (16:40)
[2018-11-02] MEDS: MELOXICAM 7.5 MG TAB PO SCH (19:45)
[2018-11-02] MEDS: CARVEDILOL 12.5 MG TAB PO SCH (19:45)
--- NOTE | 2018-11-02 20:32 | PN ---
DATE: 11/02/18 SUPERVISING PHYSICIAN: Jon Blankenship M.D. SUBJECTIVE: The patient notes that he is still having similar symptoms of the right upper quadrant pain and abdominal pain since admission. He has been NPO, therefore he has not had any nausea. Dr. Tena saw the patient this morning and discussed plan of care at this point to advance him from clear liquids to a full diet overnight. Also it was discussed that he had some significant constipation which could be causing symptoms, therefore will work on improving his obstipation. He has been afebrile. He has had no chest pains. He has not had any shortness of breath. OBJECTIVE: VITAL SIGNS: Temperature 97.8, pulse 70, blood pressure 147/78, respirations 18, satting 94% on room air. Admission weight 77.6 kg. I's and O's show a positive balance of 750. Weight is 77.6 kg. GENERAL: The patient is resting comfortably. Appears to be in no acute distress. CHEST: Clear to auscultation. HEART: Regular rate and rhythm. ABDOMEN: Continues with some mild tenderness across the mid abdominal wall up to the right upper quadrant. No rebound tenderness. No guarding. Some mild distention but no definite Mcintosh's sign. EXTREMITIES: Without any edema. NEUROLOGIC: He is alert and oriented times three. LABORATORY: White count 5,000, hemoglobin 14, hematocrit 41.8, platelet count 154,000. Differential shows to be without a left shift. Chemistries show an improving sodium at 132, potassium 4.3, BUN 12, creatinine 0.54, glucose 136, calcium 8.3. Liver functions were again showing normal limits with lipase being at normal levels. RADIOLOGY: Gallbladder ultrasound per radiology interpretation showed normal ultrasound of the gallbladder. ASSESSMENT: 1. Abdominal pain probably due to obstipation. 2. Prostatic enlargement with concerns for possible prostatitis resulting in some partial bladder outlet obstruction with the patient on Levaquin and Flagyl. 3. Acute hyposmotic hyponatremia, uncertain etiology, showing some improvement with IV fluids. 4. Extensive cardiovascular disease with previous coronary artery bypass graft, multiple stents in a patient who is continuing to smoke. 5. Chronic tobacco and nicotine abuse. PLAN: Dr. Tena has seen the patient in consultation. He wants to go ahead and try to resolve the constipation issue with some MiraLAX and Milk of Magnesia. Will advance him to a liquid diet and if he tolerates, advance to a regular diet this afternoon. If he shows improvement, certainly will anticipate discharge tomorrow, however he may need an additional dose of Milk of Magnesia tomorrow morning and discharge alter in the afternoon. I talked to Dr. Blankenship, his primary care provider, and [facility] and also he requested we start him on some Flagyl while he is in the hospital to see if this helps resolved some of his symptoms. Will anticipate hopefully discharging tomorrow. Once discharged certainly the patient will probably need a HIDA scan, but will defer that to Dr. Tena. Once discharged he will need to followup with Dr. Tena and Dr. Blankenship. #[id number] [facility]
[2018-11-02] MEDS: levoFLOXacin 750MG IV 750 MG in PREMIX BAG 1 BAG IVPB SCH (21:50)
--- NOTE | 2018-11-03 06:28 | RAD ---
ABDOMEN 11/03/2018 CLINICAL HISTORY: Abdominal pain. COMPARISON: CT abdomen and pelvis 10/31/2018 TECHNIQUE: AP abdomen. FINDINGS: There is a mild dextro convex mid lumbar curve. Remaining bones appear intact. Scattered fluid levels throughout the bowel predominantly in a peripheral distribution. No free air. No pathologic calcifications. There is a paucity of bowel air. IMPRESSION: 1. Numerous scattered fluid levels suggestive of mild enteritis. 2. Lumbar curve, apex at L3. Electronically signed by: Amairani Back DO 11/03/2018 6:26 AM [facility]
[2018-11-03] MEDS ORDERED: metroNIDAZOLE IV PREMIX 500MG 100 ML IVPB ONE (07:09)
[2018-11-03] MEDS: TAMSULOSIN 0.4 MG CAP PO SCH (08:09)
[2018-11-03] MEDS: NICOTINE PATCH 14 MG TD SCH (08:09)
[2018-11-03] MEDS: MELOXICAM 7.5 MG TAB PO SCH (08:09)
[2018-11-03] MEDS: POLYETHYLENE GLYCOL 3350 17 GM PCKT PO SCH (08:09)
[2018-11-03] MEDS: CARVEDILOL 12.5 MG TAB PO SCH (08:10)
[2018-11-03] MEDS: ASPIRIN (ENTERIC COATED) 81 MG TAB PO SCH (08:10)
[2018-11-03] MEDS: metroNIDAZOLE IV PREMIX 500MG 500 MG in PREMIX BAG 1 BAG IVPB SCH (08:10)
[2018-11-03] MEDS: ENOXAPARIN SODIUM 40 MG/0.4 ML SYG SUBCU SCH (08:10)
[2018-11-03] MEDS: CLOPIDOGREL 75 MG TAB PO SCH (08:10)
[2018-11-03] MEDS: NON-FORMULARY MEDICATION 1 EA MIS (Tadalafil [Tadalafil] 5 MG) PO SCH (08:15)
[2018-11-03] MEDS: ONDANSETRON INJ 4 MG/2 ML VIAL IV PRN (08:22)
[2018-11-03] MEDS ORDERED: DESVENLAFAXINE 50 MG PO SCH (09:00)
[2018-11-03 10:17] VITALS: BP 123/80; TEMP 98.2; O2SAT 97
--- NOTE | 2018-11-13 20:17 | DS ---
SUPERVISING PHYSICIAN: Jon Blankenship M.D. ADMISSION DIAGNOSIS: 1. Abdominal pain of uncertain etiology with findings of cholelithiasis with possible cholecystitis. 2. Prostatic enlargement, possibly resulting in some partial bladder outlet obstruction. 3. Acute hyposmotic hyponatremia, uncertain etiology, possibly medication driven with normal renal function. 4. Extensive cardiovascular disease with previous coronary artery bypass graft, multiple stents in a current smoker. 5. Chronic tobacco and nicotine abuse. DISCHARGE DIAGNOSIS: 1. Abdominal pain probably due to obstipation. 2. Prostatic enlargement with concerns for possible prostatitis resulting in some partial bladder outlet obstruction with the patient on Levaquin and Flagyl. 3. Acute hyposmotic hyponatremia, uncertain etiology, showing some improvement with IV fluids. 4. Extensive cardiovascular disease with previous coronary artery bypass graft, multiple stents in a patient who is continuing to smoke. 5. Chronic tobacco and nicotine abuse. MEDICAL CONSULTATION: Dr. Tena. Please see his note for full details. LABORATORY STUDIES: White count on admission was 7,200, at discharge was 5,000. Hemoglobin and hematocrit were stable at 14 and 41.8 respectively with platelet count 154,000. Differential showed to be without a left shift. Coagulation studies showed normal PT and PTT. Chemistries: Sodium on admission was 129, at discharge was 131. Potassium was normal at 4.1. BUN 10, creatinine 0.74, calcium 8.2. Liver functions are all within normal limits. Troponin less than 0.02. Lipase 31. Urinalysis showed to be within normal limits. RADIOLOGY: Chest x-ray in the [facility] prior to admission per radiology interpretation no acute abnormalities identified. He also had a gallbladder ultrasound per radiology interpretation showed normal ultrasound of the gallbladder. The remainder of the right upper quadrant organs were unremarkable. Normal caliber ducts. Normal caliber and flow in the portal vein. He also had an abdominal x-ray on the morning of discharge and per radiology interpretation showed numerous scattered fluid levels, just some mild enteritis. See that report for full details. HOSPITAL COURSE: Mr. Genao was admitted on 11/01/18 with concerns for possible gallstones. Dr. Tena was consulted to help with management. He was also treated for his hyponatremia with IV fluids. He was started on antibiotics that included Levaquin and Flagyl. He did show good clinical improvement with symptoms resolving prior to discharge. It was felt that he had clinically improved well enough to continue with outpatient management. PLAN: Mr. Genao was discharged on 11/03/18 with instructions to followup with Dr. Blankenship in 7 days or sooner. He was to resume his home medications as instructed. He was to take Milk of Magnesia daily for at least 3 days until he is having loose stools and then take as needed. He was instructed to take MiraLAX daily to help with constipation. He was told to return to the hospital should he have any worsening or concerning symptoms. Diet at discharge was increase fiber in diet as tolerated. Activity is increase as tolerated. New medications at discharge included [id number] medicines including Milk of Magnesia and MiraLAX as noted above. No prescription medications were provided. Condition at discharge was stable and improving. DISCHARGE DISPOSITION: The patient was discharged home. #[id number] [facility]
== END 2018-11-03 13:43 | disposition home or self-care (01) ==
LOC: ER 18:46 → MS 21:22
PROVIDERS: ADMIT Nurse Practitioner Family; ATTEND Nurse Practitioner Family
DX: N40.1 Benign prostatic hyperplasia with lower urinary tract symptoms (principal); N13.8 Other obstructive and reflux uropathy; K59.00 Constipation, unspecified; E87.1 Hypo-osmolality and hyponatremia; E87.8 Other disorders of electrolyte and fluid balance, not elsewhere classified; K44.9 Diaphragmatic hernia without obstruction or gangrene; I25.10 Atherosclerotic heart disease of native coronary artery without angina pectoris; J44.9 Chronic obstructive pulmonary disease, unspecified; F17.210 Nicotine dependence, cigarettes, uncomplicated; Z79.02 Long term (current) use of antithrombotics/antiplatelets; Z79.1 Long term (current) use of non-steroidal anti-inflammatories (NSAID); Z79.82 Long term (current) use of aspirin; Z79.899 Other long term (current) drug therapy; Z88.6 Allergy status to analgesic agent; Z95.1 Presence of aortocoronary bypass graft; Z95.5 Presence of coronary angioplasty implant and graft; Z86.73 Personal history of transient ischemic attack (TIA), and cerebral infarction without residual deficits
CPT/HCPCS: 96361 ×2; 96366 ×2; 96367; 96365; 96375 ×2; 96376 ×2; 96372 ×2; J1170 ×5; J3490 ×3; J2405 ×5; J1650 ×2; J1956 ×2; J3480 ×3; J7120; 80048 ×2; 80053; 36415 ×3; 82550; 82553; 85025 ×2; 85730; 85610; 84484; 81001; 80076; 83690 ×2; 83605; 74019; 71045; 76705; 94760 ×3; 99406; 99285

== ENCOUNTER → 2018-12-14 | Outpatient (CLI) | payer MEDICARE ==
--- NOTE | 2018-12-15 14:46 | MRI ---
EXAM DESCRIPTION: Cervical Spine CLINICAL HISTORY: 63 years Male, CERVICOTHORACIC SPONDYLOSIS COMPARISON: None available. TECHNIQUE: Multiplanar, multiecho imaging of the cervical spine was performed without gadolinium administration. FINDINGS: The vertebral body heights are well-maintained with no acute compression deformity. Multilevel intervertebral disc space narrowing is noted. The visualized spinal cord demonstrates no signal abnormality. The visualized prevertebral and paravertebral soft tissues appear grossly unremarkable. C2-C3: Mild left neural foraminal narrowing is noted secondary to uncovertebral joint arthropathy. C3-C4: Mild disc bulge and uncovertebral joint arthropathy with resultant mild canal stenosis and mild bilateral neural foraminal narrowing. C4-C5: Posterior disc osteophyte complex and facet arthropathy with resultant moderate central canal stenosis and moderate to severe bilateral neural foraminal narrowing. C5-C6: Mild canal stenosis and mild bilateral neural foraminal narrowing is noted. C6-C7: Mild left neural foraminal narrowing is noted. C7-T1: No evidence of disc herniation. No significant canal stenosis or neural foraminal narrowing. Anterior spinal fixation hardware is noted traversing C5-C7 vertebral bodies. IMPRESSION: Multilevel degenerative disc disease and uncovertebral joint arthropathy throughout the cervical spine with changes worse at C4-C5 level. Electronically signed by: Vannessa Holly MD 12/15/2018 2:43 PM CDT
--- NOTE | 2018-12-15 14:59 | CT ---
EXAM DESCRIPTION: Chest w/Contrast CLINICAL HISTORY: 63 years Male, PULMONARY NODULE COMPARISON: CT chest dated May 10, 2017. TECHNIQUE: Contiguous thin section axial images were obtained from the supraclavicular region to below the diaphragm level with the use of intravenous contrast. Sagittal and coronal reconstructions were reviewed. FINDINGS: The visualized thyroid gland appears grossly unremarkable. No enlarged axillary, supraclavicular or hilar lymphadenopathy. Stable prominent 9 mm pretracheal lymph node noted. No other enlarged mediastinal lymph nodes identified. The heart size appears within normal limits. Moderate atherosclerotic calcifications of the aortic arch and extensive coronary artery calcifications noted. No pericardial effusion. The tracheobronchial tree is patent. Review of the lung windows demonstrate no acute consolidation or pleural effusion. The 2 tiny nodular densities in the posterior basal segment of right lower lobe on axial image 37/68 appears stable with no significant interval change in size or appearance in comparison to the prior chest CT dated May 10, 2017 no other new suspicious nodules or abnormal mass lesions identified.. Again noted are moderate bilateral emphysematous changes predominantly involving both upper lobes. Persistent faint groundglass patchy opacities in the bilateral lungs could represent chronic interstitial fibrosis with a stable appearance in comparison to the prior chest CT from 2016. The esophagus appears grossly normal throughout its length. The visualized upper abdomen appears grossly unremarkable. Review of the bone windows demonstrate no acute osseous abnormality. IMPRESSION: 1. No acute consolidation or pleural effusion. 2. Moderate emphysematous changes predominantly involving the upper lobes. Persistent scattered patchy groundglass opacifications in bilateral lung jimenez could represent chronic interstitial fibrosis. These changes appear stable from prior chest CT dated May 10, 2017 with no significant interval change. 3. The previously noted punctate nodules in the posterior basal segment of right lower lobe appears stable in size. 4. No other acute cardiopulmonary process. This exam was performed according to our departmental dose-optimization program, which includes automated exposure control, adjustment of the mA and/or kV according to patient size and/or use of iterative reconstruction technique. Electronically signed by: Frank Calle MD 12/15/2018 2:56 PM CDT
--- NOTE | 2018-12-15 14:59 | MRI ---
EXAM DESCRIPTION: Thoracic Spine w/o Contrast CLINICAL HISTORY: 63 years Male, CERVICOTHORACIC SPONDYLOSIS COMPARISON: MRI of the thoracic spine dated 04/18/2017. TECHNIQUE: Multiplanar multiecho imaging of the thoracic spine was performed without gadolinium administration. FINDINGS: Chronic superior endplate wedging of T3 vertebral body with approximately 20% loss of height is noted. Remainder of the vertebral body heights are well-maintained with no acute compression deformity. There is multilevel degenerative disc disease and facet arthropathy with mild bilateral neural foraminal narrowing at T9-T10 level and moderate bilateral neural foraminal narrowing at T10-T11 level. The visualized prevertebral and paravertebral soft tissues appear normal. IMPRESSION: Multilevel degenerative disc disease and facet arthropathy is noted throughout the thoracic spine with mild bilateral neural foraminal narrowing at T9-T10 and moderate bilateral neural foraminal narrowing at T10-T11 levels. Electronically signed by: Vannessa Holly MD 12/15/2018 2:55 PM CDT
== END ==
LOC: MRI 08:18
PROVIDERS: ATTEND Neurological Surgery
DX: R91.1 Solitary pulmonary nodule (principal); M47.813 Spondylosis without myelopathy or radiculopathy, cervicothoracic region; M51.34 Other intervertebral disc degeneration, thoracic region; M50.30 Other cervical disc degeneration, unspecified cervical region

== ENCOUNTER → 2018-12-26 | Outpatient (CLI) | payer MEDICARE ==
--- NOTE | 2018-12-27 11:05 | RAD ---
EXAM DESCRIPTION: MYELOGRAM, CERVICAL SPINE: RF. CLINICAL HISTORY: CERVICOTHORACIC SPONDYLOSIS COMPARISON: Post cervical myelogram CT scan following this procedure. TECHNIQUE: The procedure was explained to the patient with risks and benefits. The patient gave verbal and written consent. Mental Telepathist images of the cervical and lumbar spine. Patient prone on the tilting fluoroscopic table. L2-L3 interspinous fossa localized by fluoroscopy. Overlying skin was marked and prepped with sterile solution and sterile draping applied. Subcutaneous and deep 1% xylocaine injection. 5 cm 22-gauge spinal needle introduced into the interspinous fossa under fluoroscopic guidance. Clear CSF fluid appeared in the hub of the needle, confirming placement in the subarachnoid space. 15 mL of intrathecal Isovue-300 M contrast was injected under fluoroscopic visualization. Observed contrast material in the lumbar subarachnoid space. Tilted patient 15 degrees down until contrast seen in cervical subarachnoid space. 4 fluoroscopic images obtained. Total images 6. Total fluoroscopy time was 4.2 minutes. Dose: 324.36 mGy. DAP 64.4 meeks- centimeter squared. FINDINGS: ACDF C5-C7. Bilateral cervical facet arthrosis. Prior sternotomy. Levoscoliosis L2-L4. L4-S1 dextroscoliosis. Spondylosis in the L3-4 and L4-5 disc spaces. IMPRESSION: Successful cervical myelogram after lumbar puncture and introduction of contrast into the lumbar subarachnoid space. No immediate complications. Please refer to post myelogram cervical CT scan. Electronically signed by: Galo Ozuna MD 12/27/2018 11:02 AM CDT
--- NOTE | 2018-12-27 12:09 | CT ---
EXAM DESCRIPTION: Cervical Spine: Computed Tomography. CLINICAL HISTORY: 63 years Male CERVICOTHORACIC SPONDYLOSIS. Following cervical myelogram; lumbar puncture and introduction of intrathecal contrast. COMPARISON: Cervical myelogram on this visit. MR cervical spine 03/24/2016. TECHNIQUE: Spiral, axial 2.0 mm scans through the cervical spine after introduction of lumbar subarachnoid space contrast. Coronal and sagittal 2.0 mm Reconstructions. No adverse reactions. Total Exam DLP: 609.49 mGy-cm. This exam was performed according to our departmental dose-optimization program which includes automated exposure control, adjustment of the mA and/or kV according to patient size and/or use of iterative reconstruction technique; to reduce radiation dose to as low as reasonably achievable (ALARA). FINDINGS: Contrast is visible in the subarachnoid space above the foramen magnum abutting the cerebellar tonsils, and the medullary-cord junction. Arthrosis of the atlantoaxial joint. No encroachment on the anterior cord. Occipital atlantoaxial lateral joint spaces are unremarkable. Bilateral C1-C2 facets are negative. C2-C3: Calcification in the disc and posterior disc space loss. Minimal hypertrophy of the posterior endplates with no cord or neural foraminal encroachment. Minimal arthrosis of the facet joints. C3-C4: Minimal posterior disc space loss and posterior spur disc encroachment on the ventral epidural space but not the cord. Bilateral uncinate spurs larger on the right with moderate neural foraminal narrowing. Mild left neural foraminal narrowing. Mild canal narrowing. Facet arthrosis on the right. C4-C5: Calcification in the anterior disc with anterior ridging of the endplates. Trace anterolisthesis. Posterior disc space loss. Posterior broad-based disc osteophyte complex bulge effacing the epidural space almost touching the cord. Posterior hypertrophic ligamentous almost abutting the cord. Bilateral facet internal fixation fusion. Bilateral uncinate spurs. Bilateral neural foraminal stenosis. AP canal diameter 7 mm. ACDF C5-C7. Hardware is intact. Customary position and near-anatomic alignment. Partial bony fusion of the disc spaces. Bilateral mild neural foraminal narrowing. No canal stenosis. Wire cerclage posterior C7 spinous process. C7-T1: Minimal loss of the disc space with no significant bulging. Minimal narrowing of the right neural foramen. Canal is patent. No significant facet arthrosis. T1-T2: Anterior disc space loss and endplate ridging. No significant disc bulge. Canal and bilateral foramina are patent. Facet joints are unremarkable. Schmorl's node superior T3 endplate. No canal or left neural foraminal stenosis at T2-T3. Narrowing right neural foramen by facet spur. No paravertebral soft tissue mass. Heterogeneous appearance of the thyroid gland. No soft tissue masses or adenopathy in the upper mediastinum. Atherosclerotic calcifications in the brachiocephalic vessels, thoracic aorta, and coronary arteries. Emphysematous changes bilaterally. Septal type. Bilateral apical pleural thickening. IMPRESSION: 1. Mild to moderate central canal stenosis at C4-C5 secondary to posterior disc osteophyte complex and posterior ligament hypertrophy. Bilateral hardware fusion of the facet joints. Bilateral neural foraminal stenosis. Correlate for bilateral C5 radiculopathy. 2. Anterior fusion construct C5 - C7. Wire cerclage posterior C7 spinous process. 3. Posterior disc osteophyte complex at C3-C4 narrowing the canal . Moderate right neural foraminal narrowing by spur. 4. Arthrosis atlantoaxial joint but no canal or foraminal stenosis. Electronically signed by: Galo Ozuna MD 12/27/2018 12:06 PM CDT
== END ==
LOC: CT 09:45
PROVIDERS: ATTEND Neurological Surgery
DX: M47.813 Spondylosis without myelopathy or radiculopathy, cervicothoracic region (principal); Z98.1 Arthrodesis status

== ENCOUNTER → 2019-02-28 | Outpatient (CLI) | payer MEDICARE ==
--- NOTE | 2019-02-28 18:11 | RAD ---
XR CERVICAL SPINE 2 - 3 VIEWS HISTORY: 64 years Male SPONDYLOSIS WITH RADICULOPATHY COMPARISON: CT cervical spine dated December 26, 2018. TECHNIQUE: Frontal and lateral views of the cervical spine. FINDINGS: C4-C7 ACDF changes. Cerclage wire projects over the C7 spinous process. C4-C5 facet fusion hardware also noted. Imaged hardware appears grossly intact. No evidence of significant hardware loosening or subsidence. Alignment is maintained. Vertebral body heights maintained. No acute fracture observed. Osseous fusion of the C2-C3 vertebral bodies again demonstrated posteriorly. C3-C4 intervertebral disc space maintained. Included overlying soft tissues demonstrate no acute abnormality. IMPRESSION: Redemonstrated postsurgical changes of prior ACDF and facet fusion as discussed. No acute osseous abnormality detected. Electronically signed by: Jeffrey Coon MD 02/28/2019 6:09 PM CDT
--- NOTE | 2019-03-01 09:58 | MRI ---
MR LUMBAR SPINE WITHOUT THEN WITH IV CONTRAST HISTORY: 64 years Male SPONDYLOSIS WITH RADICULOPATHY COMPARISON: June 08, 2018. TECHNIQUE: Multiplanar multisequence MR imaging of the lumbar spine was performed before and after the intravenous administration of 17 mL ProHance intravenous contrast. FINDINGS: There 5 lumbar-type vertebral bodies. The most inferior disc space is designated as L5-S1. Moderate dextroconvex curvature of the lumbar spine, apex at L3. Grade 1 retrolisthesis at L4-L5. Vertebral body heights are maintained. Modic type II degenerative signal changes are present within the endplates at L5-S1. No evidence of a pathologic marrow infiltrative process. Included cord and caudal roots demonstrate normal morphology and MR signal. No abnormal enhancement detected. Conus terminates at L1. Limited evaluation of the included regional soft tissues and viscera demonstrates no acute abnormalities. No abnormal fluid collections or enhancement. Intervertebral levels: T12-L1: 4 mm right paracentral disc protrusion indents the thecal sac. No significant central canal stenosis. Mild right lateral recess stenosis. Moderate bilateral facet arthrosis. Mild right neuroforaminal stenosis. L1-L2: Mild disc desiccation and disc height loss. 3 mm annular disc bulge. No central canal stenosis. Moderate bilateral facet arthrosis. No significant neuroforaminal stenosis. L2-L3: Mild disc desiccation and disc height loss. 3 mm annular disc bulge. No central canal stenosis. Severe bilateral facet arthrosis. Mild right and moderate left lateral recess stenosis. Mild bilateral neuroforaminal stenosis. L3-L4: Severe disc desiccation. Moderate disc height loss. 5 mm annular disc bulge, with relative sparing of the central canal. In conjunction with severe ligament flavum hypertrophy, there is mild central canal stenosis with AP diameter measuring 9 mm. Severe bilateral facet arthrosis. Severe bilateral lateral recess stenosis. Mild right and severe left neuroforaminal stenosis. L4-L5: Severe disc desiccation. Moderate disc height loss. 4 mm annular disc bulge, with relative sparing of the central canal. In conjunction with severe ligamentum flavum hypertrophy, there is mild central canal stenosis with AP diameter measuring 9 mm. Severe bilateral facet arthrosis. Severe bilateral lateral recess stenosis. Severe right and moderate left neuroforaminal stenosis. L5-S1: Severe disc desiccation and disc height loss. 5 mm broad-based posterior disc osteophyte complex. No central canal stenosis. Severe bilateral facet arthrosis. Severe bilateral lateral recess stenosis. Severe bilateral neuroforaminal stenosis. IMPRESSION: Multilevel degenerative disc disease and facet arthrosis. Moderate central canal stenosis at L3-L4 and L4-L5. Lateral recess and neuroforaminal stenosis at multiple levels, most severe in the lower lumbar spine from L3-S1. Electronically signed by: Jeffrey Coon MD 03/01/2019 9:56 AM CDT
== END ==
LOC: MRI 08:06
PROVIDERS: ATTEND Neurological Surgery
DX: M47.22 Other spondylosis with radiculopathy, cervical region (principal); M51.16 Intervertebral disc disorders with radiculopathy, lumbar region; M48.062 Spinal stenosis, lumbar region with neurogenic claudication; M47.26 Other spondylosis with radiculopathy, lumbar region; Z98.1 Arthrodesis status

== ENCOUNTER → 2019-04-12 | Outpatient (CLI) | payer MEDICARE | LOC: GMAJS 17:00 | PROVIDERS: ATTEND Physician Assistant | DX: R23.3 Spontaneous ecchymoses (principal) ==

== ENCOUNTER → 2019-05-31 | Outpatient (CLI) | payer MEDICARE ==
--- NOTE | 2019-06-01 09:18 | CT ---
EXAM DESCRIPTION: Chest w/o Contrast : Computed Tomography. CLINICAL HISTORY: 64 years Male STERNAL NON-UNION COMPARISON: CT scan of the chest with contrast 12/14/2018. TECHNIQUE: Spiral-axial scans at 5 x 5 mm intervals through the lungs and thorax without IV contrast. 2.5 x 5 mm lung algorithm axial reconstructions. Coronal and sagittal 2.0 Mm reconstructions. Volume rendering 0.6 mm 3-D images of the sternum and 3-D VR images of the sternotomy wires . Total Exam DLP: 487.11 mGy-cm. This exam was performed according to our departmental dose-optimization program which includes automated exposure control, adjustment of the mA and/or kV according to patient size and/or use of iterative reconstruction technique; to reduce radiation dose to as low as reasonably achievable (ALARA). Nodule measurements under 10 mm are given as mean value of 3 axes diameters. FINDINGS: Osseous structures: All of the sternotomy wires are broken except for the most superior loop. 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 Right side of the sternum body is from the xiphoid process.. The right body of the sternum forms a pseudojoint with the proximal xiphoid. Minimal separation of the manubrium from the sternum on the right and left components. The left manubrium is displaced posterior to the right manubrium, and slightly inferior. Also separation left sternomanubrial joint. Arthrosis in the right sternomanubrial joint. No definite bone destruction in the sternum or manubrium. Minimal spondylosis of the thoracic spine. Levoscoliosis thoracolumbar segments. Prior ACDF inferior cervical spine. Minimal arthrosis bilateral glenohumeral joints. Lungs and large airways: Stable 3 mm nodule lateral aspect right middle lobe on axial series 4 image 79. Stable focal pleural thickening more likely than nodule abutting the pleura in the right apex, approximately 9.5 mm on image 4/15. Numerous bilateral blebs more than bulla more prevalent in the upper lung jimenez than lower, and essentially symmetric bilaterally. Paraseptal distribution also in the subpleural regions and abutting the medial pleura. Isolated bulla in the left lower lobe are stable. No abnormal nodule, no mass or focal infiltrate. Pleural spaces: Stable thickening. Mediastinum and Anisha: Evaluation limited due to lack of IV contrast small nodes with no dominant mass, unchanged. Great vessels and Heart: Evaluation limited due to lack of IV contrast. Coronary artery stents and atherosclerotic calcifications. Atherosclerotic calcifications also in the aortic arch and descending aorta. No change. Soft tissues of neck base, axillae, and chest wall: Evaluation limited due to lack of IV contrast. No soft tissue mass anterior to the sternum. Stable. Upper abdomen: No free air or free fluid in the included peritoneal space. Atherosclerotic calcifications. Normal size and density of the adrenal glands. Gallbladder visualized. IMPRESSION: 1. 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 Only the upper wire loop is intact. The xiphoid process is fused to the left inferior body. The left manubrium and upper left body is posterior and slightly inferior to the right manubrium and upper body. Left sternomanubrial junction is displaced with arthrosis in the right sternomanubrial junction. No cortical destruction or soft tissue mass. 2. Paraseptal type emphysematous changes in the bilateral lungs, more severe in the upper lung jimenez stable. Focal pleural thickening right apex and 3 mm nodule right middle lobe stable. No chest CT follow-up of the nodules is recommended. Electronically signed by: Galo Ozuna MD 06/01/2019 9:17 AM CDT
== END ==
LOC: CT 11:30
PROVIDERS: ATTEND Thoracic Surgery (Cardiothoracic Vascular Surgery)
DX: S22.23XK Sternal manubrial dissociation, subsequent encounter for fracture with nonunion (principal); J98.4 Other disorders of lung; R91.1 Solitary pulmonary nodule; Z98.890 Other specified postprocedural states

== ENCOUNTER 2019-06-11 15:45 | Emergency (ER) | payer MEDICARE ==
--- NOTE | 2019-06-11 14:23 | CT ---
Procedure: CT ABDOMEN PELVIS WITHOUT THEN WITH IV CONTRAST Exam Date: 06/11/2019 Ordering Provider: Jon Blankenship Clinical Indication: ABD PAIN Comparison: 10/31/2018 TECHNIQUE: 5 mm images were taken through the abdomen and pelvis before and after the administration of nonionic intravenous contrast material. Oral contrast was administered. Coronal and sagittal reformatted images were generated. This exam was performed according to our departmental dose optimization program which includes use of automated exposure control, adjustment of the mA and/or kV according to patient size and/or use of iterative reconstruction technique. FINDINGS: Lower chest: Nonacute Abdomen: Liver and biliary system: Liver is unremarkable. No calcified gallstones. Spleen: Unremarkable Pancreas: Unremarkable Adrenal glands: Unremarkable Kidneys, ureters, bladder: No hydronephrosis in either kidney. Ureters are unremarkable. Diffuse thickening of the bladder wall with adjacent infiltration/stranding. There is gas within the urinary bladder in addition to extraluminal gas. Lymph nodes: No lymphadenopathy Retroperitoneum, abdominal wall, peritoneal cavity: Free air in the pelvis. Tiny gas bubble adjacent to the left psoas may represent additional free air. No ascites. Small fat-containing right inguinal hernia. Vessels: No abdominal aortic aneurysm. Aortic calcification. Bowel: No bowel obstruction. Small hiatal hernia. Appendix not visualized and may be surgically absent. Pelvic organs: Unremarkable Bones: Nonacute IMPRESSION: 1. Findings suspicious for perforated emphysematous cystitis ::: This critical result was verbally reported to Dr. Blankenship on 06/11/2019 2:20 PM CDT. ::: Electronically signed by: Robert Law MD 06/11/2019 2:22 PM CDT
--- NOTE | 2019-06-11 16:39 | ED.PDOC ---
History of Present Illness - General Chief Complaint: Abdominal Pain Stated Complaint: low abdominal pain Time Seen by Provider: 06/11/19 16:36 Information Source: patient, family - History of Present Illness Initial Comments: 64 yo M with hx of prostate surgery with laser procedure who follows with urology in [place], Dr. Beavers, who presents today from PCP after CT scan showed "perforated emphysematous cystitis." Pt and reports last week, after riding on his tractor, he began to have R groin and back pain and subsequently treated for MSK strain with steroids and NSAIDs. However pain continued and now with dysuria, urinary frequency, suprapubic discomfort but denies distention, fullness, pain. Followed up with PCP this am who obtained labs and CT scan. Pt was called with the results and told to come to the ED. Denies f/c, cough, CP, SOB, flank pain, weakness, numbness, hematuria, diarrhea, constipation, scrotal swelling, penile discharge, penile swelling. Review of Systems - Review of Systems Constitutional: Denies: chills, fever EENTM: States: no symptoms reported Respiratory: Denies: cough, orthopnea, short of breath Cardiology: Denies: chest pain, edema, palpitations, syncope Gastrointestinal/Abdominal: States: other - +Suprapubic discomfort. Denies fullness, distention.. Denies: abdominal pain, constipation, diarrhea, nausea, vomiting Genitourinary: States: dysuria, frequency. Denies: discharge, hematuria Musculoskeletal: Denies: back pain, neck pain Skin: Denies: lesions, rash Neurological: Denies: numbness, weakness Endocrine: Denies: increased hunger, increased thirst Hematologic/Lymphatic: Denies: easy bleeding, easy bruising Past Medical History (General) - Patient Medical History Hx Seizures: No Hx Stroke: Yes - hx small tia Hx Asthma: No Hx of COPD: Yes Hx Cardiac Disorders: Yes Hx Congestive Heart Failure: No Hx Pacemaker: No Hx Hypertension: Yes Hx Diabetes: Yes Hx MRSA: No Surgical History: coronary bypass surgery - Vaccination History Hx Influenza Vaccination: No Hx Pneumococcal Vaccination: Yes Immunizations Up to Date: Yes - Social History Hx Tobacco Use: Yes Hx Alcohol Use: No Hx Substance Use: No Hx Physical Abuse: No Hx Emotional Abuse: No Family Medical History - Family History Father Living Status: Hx Family Congestive Heart Failure: Yes - parents Hx Family Hypertension: Yes - parents Physical Exam - Physical Exam General Appearance: Alert, Comfortable, No apparent distress, Well Developed, Well Nourished Eyes, Ears, Nose, Throat Exam: PERRL/EOMI, normal ENT inspection Neck: non-tender, full range of motion, supple Respiratory: lungs clear, normal breath sounds, no respiratory distress, no accessory muscle use Cardiovascular/Chest: normal peripheral pulses, regular rate, rhythm, no edema, no gallop, no JVD, no murmur Peripheral Pulses: No deficit Gastrointestinal/Abdominal: normal bowel sounds, non tender, soft, no organomegaly, no pulsatile mass, other - No distention, fullness, guarding, rebound, TTP, hernia, mass. Male Genitalia: normal genitalia Back Exam: normal inspection, no CVA tenderness, no vertebral tenderness Extremity: normal range of motion, non-tender, normal inspection, no pedal edema Neurologic: no motor/sensory deficits, alert, normal mood/affect, oriented x 3 Skin Exam: normal color, warm/dry Progress - Progress Progress: 06/11/19 16:45 Pt is well appearing, resting comfortably in bed, no acute surgical abd on exam. Will place urinary catheter and discuss with urology. Have discussed with PCP Dr. Blankenship prior to pt's arrival in ED. He has faxed over the results. 06/11/19 16:[address] Angel. Endorsees concern for bowel pathology as source of free air as there is no free fluid in the abd as one would expect with bladder perforation. In discussion with him about family weighing possibility of transfer to facility with their urologist, agree that that would be the best option for the pt and would involve general surgery at that facility as well. 06/11/19 17:08 Discussed with family, updated on discussion with Dr. Angel. Agree with plan of care for transfer. Request we discuss with their urologist, Dr. Beavers. Will page. Pt is well appearing, NAD. 06/11/19 17:[address] Singletary, urology ground operations supervisor for pt urologist, Dr. Beavers. Endorses concern for bowel pathology as source of free air. Recommends consultation with general surgery and no true need to involve urology at this time and therefore questions need for transfer at this time. 06/11/19 17:40 Dr. Blankenship at bedside evaluating pt, discussed with Dr. Beavers (pt is friends with him and therefore called him on his cell phone), after discussion Dr. Blankenship and Dr. Beavers agree for outpt management, Dr. Beavers will see pt in clinic tomorrow morning. Will await consult with general surgery. 06/11/19 18:[address] Keith, general surgery, he will come and assess in the pt in the ED and review CT scan personally. At this time, believes we could admit pt to this facility and would defer plan to transfer. 06/11/19 18:05 Updated family on plan, agree. All questions and concerns addressed at this time. 06/11/19 20:[address] Keith who reviewed imaging and evaluated the pt. No acute abd, believes the air is possibly a small abscess in nature. He does not feel that there is a bowel or a bladder perforation as the source of the free air. Recommends antibx and follow up outpt with pt's urologist as scheduled tomorrow morning. 06/11/19 20:20 I have explained and reviewed all results with the pt and . Urinary catheter left in place with leg bag. Discussed d/c home. Pt is anxious to be d/c, and pt are comfortable with d/c home. Discussed at length. I explained that emergent conditions may arise and to return to the ER for new, worsening, or any persistent conditions including but not limited to f/c, abd pain, fullness, firmness, decreased or no urine outpt. I've explained the importance of f/u for recheck tomorrow morning. Pt has antibx at pharmacy that was prescribed by Dr. Blankenship today, pt due for dose of antibx in am however has scheduled followup with urology and they would like to defer preference of antibx to his suggestion after they see him. All questions and concerns addressed at this time. Pt understands and agrees with plan. Pt well appearing, NAD, no acute surgical abd, is stable for discharge. Sonja Licona MD Emergency Medicine Physician Billing Number [id number] - Results/Orders Results/Orders: 06/11/19 16:30 Catheter:[place] QSHIFT Labs: WBC 11.5 H/H 14.14/42/3 Plt 253 Na 135 K 4.7 Chloride 98 CO2 30 Calcium 9.7 Gluc 172 BUN 21 Cr 0.8 Alk Phos 151 ALT 48 AST 30 Total Bili 0.7 UA: Ketones neg Blood 2+ Protein 2+ Nitrite neg Leukocytes 3+ WBC >50 RBC 10-20 Epithelial few Bacteria 3+ Procedure: CT ABDOMEN PELVIS WITHOUT THEN WITH IV CONTRAST Exam Date: 06/11/2019 Ordering Provider: Jon Blankenship Clinical Indication: ABD PAIN Comparison: 10/31/2018 TECHNIQUE: 5 mm images were taken through the abdomen and pelvis before and after the administration of nonionic intravenous contrast material. Oral contrast was administered. Coronal and sagittal reformatted images were generated. This exam was performed according to our departmental dose optimization program which includes use of automated exposure control, adjustment of the mA and/or kV according to patient size and/or use of iterative reconstruction technique. FINDINGS: Lower chest: Nonacute Abdomen: Liver and biliary system: Liver is unremarkable. No calcified gallstones. Spleen: Unremarkable Pancreas: Unremarkable Adrenal glands: Unremarkable Kidneys, ureters, bladder: No hydronephrosis in either kidney. Ureters are unremarkable. Diffuse thickening of the bladder wall with adjacent infiltration/stranding. There is gas within the urinary bladder in addition to extraluminal gas. Lymph nodes: No lymphadenopathy Retroperitoneum, abdominal wall, peritoneal cavity: Free air in the pelvis. Tiny gas bubble adjacent to the left psoas may represent additional free air. No ascites. Small fat-containing right inguinal hernia. Vessels: No abdominal aortic aneurysm. Aortic calcification. Bowel: No bowel obstruction. Small hiatal hernia. Appendix not visualized and may be surgically absent. Pelvic organs: Unremarkable Bones: Nonacute IMPRESSION: 1. Findings suspicious for perforated emphysematous cystitis ::: This critical result was verbally reported to Dr. Blankenship on 06/11/2019 2:20 PM CDT. ::: Electronically signed by: Robert Law MD 06/11/2019 2:22 PM CDT Departure - Departure Clinical Impression: Acute cystitis without hematuria Time of Disposition: 20:18 Disposition: Discharge to Home or Self Care Health Concerns: Condition: Stable Departure Forms: ED Discharge - Pt. Copy, Patient Portal Self Enrollment Instructions: Urinary Tract Infection, Adult (DC) Referrals: Jon Blankenship MD [Primary Care Provider] - 1-2 Weeks Home Medications: Ambulatory Orders RX: Aspirin [Aspirin Adult Low Dose] 81 mg PO DAILY 01/10/17 RX: Carvedilol [Coreg] 25 mg PO BID 01/10/17 RX: Clopidogrel Bisulfate [Plavix] 75 mg PO QD 01/10/17 RX: Coenzyme Q10 (Ubidecarenone) [Co Q-10] 200 mg PO DAILY 01/10/17 RX: Meloxicam [Mobic] 7.5 mg PO BID 01/10/17 RX: Nitroglycerin [Nitrostat] 0.4 mg SL PRN PRN 01/10/17 RX: Probiotic Product [Probiotic] 1 tab PO DAILY 01/10/17 RX: Tamsulosin [Flomax] 0.4 mg PO QD 01/10/17 RX: Cholecalciferol [Vitamin D3] 1,000 unit PO DAILY 11/01/18 RX: Ciprofloxacin [Cipro] 500 mg PO BID 11/01/18 RX: Cyclobenzaprine HCl [Cyclobenzaprine Hydrochlo] 10 mg PO PRN 11/01/18 RX: Desvenlafaxine [Desvenlafaxine ER] 50 mg PO DAILY 11/01/18 RX: Tadalafil 5 mg PO DAILY 11/01/18 Magnesium Hydroxide [Milk Of Magnesia] 30 ml PO DAILY PRN #30 ud 11/03/18 Polyethylene Glycol 3350 [Miralax] 17 gm PO DAILY 20 Days #30 pckt 11/03/18 Additional Instructions: Follow up: [facility] [place] As needed, if symptoms worsen Your urologist Go to as scheduled tomorrow morning for follow up
[2019-06-11] MEDS ORDERED: PIPERACILLIN/TAZOBACTAM 4.5 GM in SODIUM CHLORIDE 0.9% 100ML 100 ML IVPB ONE (16:51)
[2019-06-11] MEDS ORDERED: SODIUM CHLORIDE 0.9% 100ML 100 ML IVPB ONE (16:54)
[2019-06-11] MEDS ORDERED: PIPERACILLIN/TAZOBACTAM 2.25 GM VIAL IVPB ONE (16:54)
[2019-06-11 20:37] VITALS: BP 119/77; TEMP 97.9; O2SAT 96
== END 2019-06-11 20:42 | disposition home or self-care (01) ==
LOC: ER 15:45
DX: N30.00 Acute cystitis without hematuria (principal); J44.9 Chronic obstructive pulmonary disease, unspecified; I51.9 Heart disease, unspecified; I10 Essential (primary) hypertension; E11.9 Type 2 diabetes mellitus without complications; Z95.1 Presence of aortocoronary bypass graft; Z86.73 Personal history of transient ischemic attack (TIA), and cerebral infarction without residual deficits; Z87.891 Personal history of nicotine dependence; Z98.890 Other specified postprocedural states
CPT/HCPCS: 74178; G0103; J2543; J7050

== ENCOUNTER → 2020-01-22 | Outpatient (CLI) | payer MEDICARE ==
--- NOTE | 2020-01-22 11:00 | RAD ---
Study: Frontal and Lateral Radiographs of the Chest. Indication: STERNAL NON UNION Comparison: November 01, 2018 Impression: Median sternotomy wires and surgical plates noted. The screws involved with the inferior plate appear slightly proud. In addition, the inferior most wires appear fractured. CT could better evaluate as clinically indicated. Mild cardiomegaly. Coronary artery stent suspected. Interstitial markings mildly prominent bilaterally and relate to chronic interstitial scarring or mild edema. No consolidation, pleural effusion or pneumothorax. Lower cervical fusion construct noted. Electronically signed by: Marshall Beckham MD 01/22/2020 10:59 AM CDT
== END ==
LOC: RAD 10:30
PROVIDERS: ATTEND Thoracic Surgery (Cardiothoracic Vascular Surgery)
DX: S22.23XK Sternal manubrial dissociation, subsequent encounter for fracture with nonunion (principal); I51.7 Cardiomegaly; R91.8 Other nonspecific abnormal finding of lung field; Z98.1 Arthrodesis status

== ENCOUNTER → 2020-03-13 | Outpatient (CLI) | payer MEDICARE ==
--- NOTE | 2020-03-14 09:39 | CT ---
EXAM DESCRIPTION: Chest w/o Contrast : Computed Tomography. CLINICAL HISTORY: 65 years Male STERNAL NON UNION COMPARISON: CT scan of the chest without contrast May 2019. TECHNIQUE: Spiral-axial scans at 5 mm intervals through the lungs and thorax without IV contrast. 2.5 x 5 mm lung algorithm axial reconstructions. Coronal and sagittal 2.0 Mm reconstructions. 3-D volume rendering to evaluate the bony thorax and sternum. Total Exam DLP: 579 mGy-cm. This exam was performed according to our departmental dose-optimization program which includes automated exposure control, adjustment of the mA and/or kV according to patient size and/or use of iterative reconstruction technique; to reduce radiation dose to as low as reasonably achievable (ALARA). Nodule measurements under 10 mm are given as mean value of 3 axes diameters. FINDINGS: Lungs and large airways: Again noted are chronic blebs and scattered bulla and paraseptal distribution and more prevalent in the upper lung jimenez. Peripheral patchy densities are more prevalent in the mid lung jimenez along with chronic septal thickening. Less prevalent in the lung bases with scattered bilateral bulla in the mid and lower lung jimenez. Moderate bilateral perihilar peribronchial wall cuffing is stable. No abnormal nodule and no new mass. No new infiltrate. Pleural spaces: Bilateral apical pleural thickening including nodular-like site in the right apex stable. Other bilateral pleural thickening in the mid and lower lung jimenez stable. Sternum: Again noted is a nonhealed sternotomy cleft in the sternum from the superior margin of the manubrium through the xiphoid process, with the cleft widening superior to inferior. Since the prior study, anterior ORIF of the inferior sternum has been attempted with a plate and 4 screws. The right side screws are not anchored to bone, only in the soft tissue of the cleft previously described. Radiolucency noted around the 2 left screws which is interpreted to be a second cleft with essentially no anchoring of the screw. Minimal radiolucency between the posterior left aspect of the plate and the bony surface. A segment of wire more inferiorly on the left and above the xiphoid level, is projecting to the left, with anterior displacement of the skin surface, but no penetration. This segment was previously looped under the skin. A second ORIF side with anterior plate and 4 fixation screws, introduced since the prior study, is shaped like an inverted V, with 2 superior screws and 2 inferior screws approximately 2 cm below the superior sternal margin. The right superior and inferior screws are surrounded by bone with approximately 2 mm of separation from the posterior plate to the anterior cortex. The left side screws are not anchored to bone but are within soft tissue in a cleft or fracture of the left sternum. 5 mm separation between the posterior plate and the anterior cortex. The plate is intact. No bone formation or callus formation of the sternotomy cleft. In the manubrium, a third ORIF plate introduced since the prior study, with upper and lower screws bilateral, total of 4. Minimal radiolucency around the inferior left screw suggests loosening. The 3 remaining screws are anchored in bone with normal surrounding density. Plate is intact, but posterior surfaces 3 to 4 mm from the anterior manubrial cortex. No significant bone formation or callus formation in the sternotomy cleft. Mild offset is again noted between the right and left manubrium at the cleft, with right manubrium more anterior. Remaining wires and manubriosternal components showing no significant change in position or status. Mediastinum and Anisha: Evaluation limited due to lack of IV contrast stable lymph nodes including a larger node in the azygos space. No dominant soft tissue mass. Great vessels and Heart: Evaluation limited due to lack of IV contrast. Numerous vascular calcifications in the coronary arteries and aortic arch and descending thoracic aorta no interval change. Soft tissues of neck base, axillae, and chest wall: Evaluation limited due to lack of IV contrast. Abnormal orientation of sternotomy wire as previously described. Normal-sized lymph nodes. Upper abdomen: Gallbladder contracted. Normal size and density of spleen and adrenal glands. No free air or free fluid. Osseous structures: Schmorl's node superior T3 endplate stable. Spondylosis at multiple levels. No lytic or blastic lesions. Stable area stenosis bilateral glenohumeral arthrosis. IMPRESSION: 1. ORIF attempted at 3 levels of the manubrium and sternum since the prior study with complications at each level consisting of loose screws and recurrent fracture around the screws predominantly to the left of midline. No significant callus formation or bony fusion of the previous sternotomy cleft. No prominent soft tissue mass. Inferior left cerclage wire is oriented anterior, almost protruding through the skin undersurface. 2. COPD and chronic interstitial process in the lungs bilaterally stable with no new nodules or infiltrates. Electronically signed by: Galo Ozuna MD 03/14/2020 9:38 AM CDT
== END ==
LOC: CT 08:35
PROVIDERS: ATTEND Thoracic Surgery (Cardiothoracic Vascular Surgery)
DX: S22.22XK Fracture of body of sternum, subsequent encounter for fracture with nonunion (principal); T84.218A Breakdown (mechanical) of internal fixation device of other bones, initial encounter; J44.9 Chronic obstructive pulmonary disease, unspecified; R91.8 Other nonspecific abnormal finding of lung field

== ENCOUNTER → 2020-06-04 | Outpatient (CLI) | payer MEDICARE ==
--- NOTE | 2020-06-05 16:21 | MRI ---
EXAM DESCRIPTION: Lumbar Spine w/o Contrast : Magnetic Resonance Imaging. CLINICAL HISTORY: back pain COMPARISON: MRI scan lumbar spine February 2019. TECHNIQUE: Multiplanar, multiple standard sequences, non contrast MRI, lumbar spine. FINDINGS: L5-S1: The disc is well visualized on axial T2 series 501, image 3. Minimal to moderate disc space loss bilaterally with moderate endplate reactive changes and disc osteophyte complex encroachment on the bilateral foramina and left foraminal stenosis and right moderate to severe foraminal narrowing. Mild hypertrophic changes in the facet joints and posterior flavum ligaments (canal elements). 2-3 mm grade 1 retrolisthesis. AP canal diameter 11 mm. Stable since the prior study. L4-L5: Disc desiccation and minimal disc space loss in the midline and right of midline with moderate endplate reactive changes. Partial right laminectomy and decompression since the prior study with mild canal narrowing. Posterior broad-based bulge. Hypertrophic changes in the canal elements. Mild to moderate left foraminal narrowing and moderate right foraminal narrowing. L3-L4: Disc desiccation and minimal disc space loss. More left than right with mild to moderate spondylosis and disc osteophyte complex encroaching on the left foramen. Posterior broad-based bulge. Hypertrophic changes in the canal elements. Mild narrowing of the right foramen. Left facet joint abutting the descending left L4 nerve above the lateral recess. L2-L3: Disc desiccation with disc space maintained. Paracentral disc protrusion 4 mm. This has progressed since the prior study. Hypertrophic changes in the canal elements. AP canal diameter 9 mm. Mild left foraminal narrowing. Right foramen patent. L1-L2: Disc desiccation posterior broad-based bulge. Hypertrophic changes in the canal elements. AP canal diameter 10 mm. Bilateral foramina are patent. No interval change. T12-L1: Disc desiccation minimal disc space loss with anterior and posterior bulge. Disc bulge into the right foramen with mild to moderate narrowing. No change since the prior study. Trace anterolisthesis. Minimal hypertrophic changes in the canal elements. Left foramen is patent. Conus terminates at this level. L2-L4 dextroscoliosis. Paravertebral soft tissues muscle atrophy. Distal cord normal signal and caliber. Inhomogeneous marrow signal in the vertebral bodies and the posterior elements. Vertebral bodies are not compressed at any level. IMPRESSION: 1. Multiple levels of disc desiccation and disc space loss, endplate spondylosis, hypertrophic changes in the facet joints and flavum ligaments, bulging discs, and dextroscoliosis. 2. Right posterior protrusion of the L2-L3 disc which is a new finding since the prior study. Mild central canal stenosis. Mild left foraminal narrowing. 3. Findings at other disc space levels are stable. Please refer to above FINDINGS for discussion of results at other disc space levels. Electronically signed by: Galo Ozuna MD 06/05/2020 4:19 PM CDT
== END ==
LOC: MRI 14:07
PROVIDERS: ATTEND Physician Assistant
DX: M51.16 Intervertebral disc disorders with radiculopathy, lumbar region (principal); M51.15 Intervertebral disc disorders with radiculopathy, thoracolumbar region; M47.26 Other spondylosis with radiculopathy, lumbar region; M24.28 Disorder of ligament, vertebrae; M41.9 Scoliosis, unspecified; M48.061 Spinal stenosis, lumbar region without neurogenic claudication

== ENCOUNTER → 2020-06-27 | Outpatient (CLI) | payer MEDICARE ==
--- NOTE | 2020-06-27 16:51 | MRI ---
EXAM DESCRIPTION: Brain w/o Contrast CLINICAL HISTORY: [facility] [place] SYMPTOMS AND SIGNS INVOLVING COGNITIVE FUNCTIONS COMPARISON: None available TECHNIQUE: Non contrast MRI of the brain is performed according to our usual protocol including multiplanar multi sequence technique. FINDINGS: No hemorrhage, mass effect, restricted diffusion, or acute infarction is present. There is normal configuration of the ventricles and sulci. Mild generalized volume loss. Mild T2/FLAIR hyperintensities in the supratentorial white matter. Chronic lacunar infarct in the right cerebellar hemisphere. No abnormal extra-axial fluid collections are present. Normal flow voids are present. The calvarium is intact. Visualized paranasal sinuses and mastoid air cells are clear. IMPRESSION: 1. No acute intracranial abnormality. 2. Mild senescent changes and chronic lacunar infarct in the right cerebellum. Electronically signed by: Warren Jewell MD 06/27/2020 4:49 PM CDT
== END ==
LOC: MRI 10:47
PROVIDERS: ATTEND Family Medicine
DX: I63.9 Cerebral infarction, unspecified (principal); G31.1 Senile degeneration of brain, not elsewhere classified; R71.8 Other abnormality of red blood cells; R41.9 Unspecified symptoms and signs involving cognitive functions and awareness

== ENCOUNTER → 2020-07-07 | Outpatient (CLI) | payer MEDICARE | LOC: GMAM 16:48 | PROVIDERS: ATTEND Family Medicine | DX: I74.09 Other arterial embolism and thrombosis of abdominal aorta (principal) ==

== ENCOUNTER → 2020-07-09 | Outpatient (CLI) | payer MEDICARE ==
--- NOTE | 2020-07-10 12:51 | CT ---
EXAM DESCRIPTION: CTA Chest: Computed Tomography. CLINICAL HISTORY: SHORTNESS OF BREATH COMPARISON: CT scan chest March 13. TECHNIQUE: Spiral-axial scans at 2.5 x 2.5 mm intervals through the pulmonary arteries and chest after bolus infusion of IV contrast. Lung algorithm 2.5-mm axial reconstructions. Coronal and sagittal 2.0 Mm reconstructions. 10.0 mm PE oblique 3-D reformatted images. No adverse reactions. Total Exam DLP: 827 mGy-cm. This exam was performed according to our departmental CT dose-optimization program which includes automated exposure control, adjustment of the mA and/or kV according to patient size and/or use of iterative reconstruction technique; to reduce radiation dose to as low as reasonably achievable (ALARA). FINDINGS: Pulmonary arteries: Pulmonary artery system from the main pulmonary artery to the bilateral proximal subsegmental branches is optimally demonstrated with contrast material, and diagnostic, with no filling defects. No contrast extravasation or mass effect on the vessels. Heart and other great Vessels: coronary artery stents and calcifications also present on the prior study. Intimal wall thickening and calcification aorta and included brachiocephalic vessels. Lungs and airways: Bilateral blebs and fewer bulla in a paraseptal and subpleural distribution predominantly in more prevalent in the upper lung jimenez more than midlung jimenez. Minimally present in the lower lobes, mostly superior segments. Also subpleural honeycombing in the upper lung jimenez. Stable subpleural apical nodular scar bilateral subpleural upper lobe nodules are unchanged. Stable small nonsignificant solid and groundglass nodules subpleural. No new nodules or mass. No new infiltrate. Pleura: Focal and broad thickening with no acute process. Mediastinum and kartik: scatter artifact from dense PA contrast. Stable smaller lymph nodes with no dominant soft tissue mass or enhancement. Soft tissue neck, chest wall, and axillae: Stable axillary nodes with no dominant soft tissue mass. Upper abdomen: Gallbladder partially visualized. No free fluid or free air in the included peritoneal space. Atherosclerotic calcifications and intimal wall thickening in the included aorta and major branch vessels. Included aorta and spleen negative. Osseous structures: Prior sternotomy with nonunion of the sternum, and separation, and fractured fixation devices and broken wires stable. Decreased bone density. Partial compression of T3 endplate stable. Spondylosis lower thoracic spine. Sternoclavicular and glenohumeral arthrosis. IMPRESSION: 1. CTA of the pulmonary arteries showing no evidence of acute or chronic pulmonary artery systemic embolism. 2. Paraseptal type emphysematous changes more confined to the upper lung jimenez than the midlung jimenez with honeycombing and septal thickening. Multiple subpleural and pleural-based nodules not enlarged. No abnormal nodules and no mass. No new infiltrate since prior study. No Acute infiltrate. 3. Failed sternotomy internal fixation, with nonunion of the sternotomy, stable since the prior study. Electronically signed by: Galo Ozuna MD 07/10/2020 12:50 PM CDT
== END ==
LOC: CT 10:32
PROVIDERS: ATTEND Family Medicine
DX: R91.8 Other nonspecific abnormal finding of lung field (principal); J43.9 Emphysema, unspecified; R06.00 Dyspnea, unspecified; S22.23XK Sternal manubrial dissociation, subsequent encounter for fracture with nonunion; Z98.890 Other specified postprocedural states

== ENCOUNTER → 2020-07-23 | Outpatient (CLI) | payer MEDICARE | LOC: GMAM 14:21 | PROVIDERS: ATTEND Family Medicine | DX: R94.5 Abnormal results of liver function studies (principal); E55.9 Vitamin D deficiency, unspecified; E29.9 Testicular dysfunction, unspecified ==